=== PATIENT | female | born 1940 | race Caucasian/White ===

== ENCOUNTER 2020-03-01 00:38 | Outpatient (CLI) | payer MEDICARE, SELFPAY ==
[2020-03-01 17:26] LABS: SARS-CoV-2 RNA PCR Negative
== END 2020-03-01 00:39 | disposition home or self-care (01) ==
LOC: ANHCOVIDDT 00:39
PROVIDERS: PCP Family Medicine; Visit Provider Internal Medicine Gastroenterology
DX: Z01.812 Encounter for preprocedural laboratory examination (principal); Z20.828 Contact with and (suspected) exposure to other viral communicable diseases
CPT/HCPCS: 87635; C9803; U0003

== ENCOUNTER 2020-03-03 02:11 | Day surgery (SDC) | payer MEDICARE, SELFPAY ==
[2020-02-26 12:54] VITALS: BMI 33.0
--- NOTE | 2020-03-02 13:04 | WPDANESEPPF ---
Anes - Initial Pre Proc Eval Procedure: Operation Date: 03/03/20 10:00 Proposed Procedures p Screening Colonoscopy - Connor Brandon MD Date/Time: 03/02/20 13:04 Surgeon: Connor Brandon MD Pre Op Diagnosis: Hx Of Polyps Patient Data Age: 79 Gender: F Height: 1.57 m Weight: 82 kg Allergies Allergy/AdvReac Type Severity Reaction Status Date / Time No Known Allergies Allergy Verified 03/03/20 09:30 Home Medications Medication Instructions Recorded Confirmed Type amlodipine 5 mg-benazepril 10 mg 1 cap PO DAILY #90 cap 12/30/19 03/03/20 Rx capsule cholecalciferol (vitamin D3) 75 75 mcg PO DAILY 12/30/19 03/03/20 History mcg (3,000 unit) tablet fenofibrate micronized 134 mg 134 mg PO QPM #90 cap 12/30/19 03/03/20 Rx capsule chlorthalidone 25 mg PO PRN PRN 02/26/20 02/26/20 History Patient hx anesthesia problems: none Family hx anesthesia problems: none PMFSH Past Medical History Medical History Gallbladder & bile duct stone, acute cholecystitis and obstruction Hiatal hernia HTN (hypertension) Mixed hyperlipidemia Vitamin D deficiency Surgical History Surgical History History of tubal ligation Social History Social History Smoking status: Never smoker Second hand tobacco smoke exposure: No Alcohol intake: never Substance use: never Substance use type: does not use Living arrangements: with family Additional living arrangements comments: lives with and brother Gender identity (if verbalized by the patient): Female Spiritual care concerns: No Anes - Eval Final PreProcedure Day of Procedure 03/02/20 13:04 Patient weight: obese Heart: regular rate and rhythm Lungs: clear to auscultation and normal air movement Airway: Mallampati scale class II Neurological: alert and oriented Last oral intake: >/= 8 hours ASA classification: II Emergent: no Anesthetic plan: proceed Anesthesia type and monitoring: general GIVS and standard monitoring Informed Consent: The patient's anesthetic plan and its attendant risks and benefits were discussed with the patient/family/POA. Questions were solicited and answers provided to the satisfaction of the patient/family/POA.
[2020-03-03 09:32] VITALS: BP 122/64; PULSE 77; RESP 18; TEMP 36.5; O2SAT 97; BMI 33.4
--- NOTE | 2020-03-03 09:41 | PM.HPGS ---
History of Present Illness History of Present Illness Consent: Risks, benefits, and alternatives have been discussed and questions answered. Patient agrees to proceed with procedure. Chief complaint: Hx Of Polyps Narrative: Bianca Solis is a 79 year old W female undergoing screening colonoscopy secondary history of multiple small colonic polyps on colonoscopy 3 years ago. Patient is asymptomatic. No family history of colon cancer. No interval changes in her health except for adding cholesterol-lowering medication PMFSH Past Medical History Medical History Gallbladder & bile duct stone, acute cholecystitis and obstruction Hiatal hernia HTN (hypertension) Mixed hyperlipidemia Vitamin D deficiency Surgical History Surgical History History of tubal ligation Social History Social History Smoking status: Never smoker Second hand tobacco smoke exposure: No Alcohol intake: never Substance use: never Substance use type: does not use Living arrangements: with family Additional living arrangements comments: lives with and brother Gender identity (if verbalized by the patient): Female Spiritual care concerns: No Meds Home Medications and Allergies Home Medications Medication Instructions Recorded Confirmed Type amlodipine 5 mg-benazepril 10 mg 1 cap PO DAILY #90 cap 12/30/19 03/03/20 Rx capsule cholecalciferol (vitamin D3) 75 75 mcg PO DAILY 12/30/19 03/03/20 History mcg (3,000 unit) tablet fenofibrate micronized 134 mg 134 mg PO QPM #90 cap 12/30/19 03/03/20 Rx capsule chlorthalidone 25 mg PO PRN PRN 02/26/20 02/26/20 History Allergies Allergy/AdvReac Type Severity Reaction Status Date / Time No Known Allergies Allergy Verified 03/03/20 09:30 Vital Signs Vital Signs - 24 hr 03/03/20 09:32 Temperature 36.5 C Pulse Rate 77 Respiratory Rate 18 Blood Pressure 122/64 Pulse Oximetry 97 Exam Const: Orientation/consciousness: patient oriented x3 Resp: Auscultation: clear to auscultation bilaterally Cardio: Rate: regular rate Rhythm: regular rhythm Heart sounds: no murmurs GI: GI Palp: Yes Soft to palpation, No Tenderness to palpation present (GI), Yes No hepatosplenomegaly present and No Palpable mass present Auscultation: normal bowel sounds Neuro: General: patient oriented x3 and no focal motor deficits Extrem: General: no pedal edema Assessment and Plan Additional Plan screening colonoscopy secondary history of colonic polyps
[2020-03-03] MEDS: LACTATED RINGERS 1,000 ML 150 ML IV CONT (09:47)
[2020-03-03 10:58] VITALS: BP 110/59; PULSE 69; RESP 23; O2SAT 96
[2020-03-03 11:08] VITALS: BP 103/56; PULSE 69; RESP 20; O2SAT 97
[2020-03-03 11:18] VITALS: BP 110/56; PULSE 61; RESP 20; O2SAT 97
== END 2020-03-03 11:29 | disposition home or self-care (01) ==
PROVIDERS: PCP Family Medicine; Visit Provider Internal Medicine Gastroenterology
PROC: 0DJD8ZZ Inspection of Lower Intestinal Tract, Via Natural or Artificial Opening Endoscopic (ICD-10-PCS; CPT 45378; principal; 2020-03-03 10:00)
DX: Z12.11 Encounter for screening for malignant neoplasm of colon (principal); D12.2 Benign neoplasm of ascending colon; K57.30 Diverticulosis of large intestine without perforation or abscess without bleeding; K64.8 Other hemorrhoids; K64.4 Residual hemorrhoidal skin tags; I10 Essential (primary) hypertension; E78.2 Mixed hyperlipidemia; E55.9 Vitamin D deficiency, unspecified; E66.9 Obesity, unspecified; Z68.33 Body mass index [BMI] 33.0-33.9, adult
CPT/HCPCS: 45385; 45381; 88305; J2704; J7120

== ENCOUNTER 2020-07-14 06:54 | Outpatient (NON) | payer MEDICARE, SELFPAY ==
[2020-07-14 21:42] LABS: SARS-CoV-2 RNA PCR Negative
== END 2020-07-14 06:55 ==
LOC: ANHCOVIDDT 07:08
PROVIDERS: Physician Assistant; Family Provider Family Medicine; PCP Family Medicine; Visit Provider Family Medicine
DX: R68.89 Other general symptoms and signs (principal); Z20.822 Contact with and (suspected) exposure to COVID-19
CPT/HCPCS: C9803; U0003; U0005

== ENCOUNTER 2020-11-16 08:22 | Outpatient (CLI) | payer MEDICARE, SELFPAY ==
--- NOTE | ~2020-11-16 | XR_ITS ---
EXAMINATION: XR chest 2V DATE: 11/16/2020 08:39 INDICATION: Cough. TECHNIQUE: Frontal and lateral views of the chest were obtained. COMPARISON: CT abdomen and pelvis 09/16/2014, chest 2 views 10/18/2004 FINDINGS: The chest demonstrates clear lungs without pneumonia, pleural effusion, or pneumothorax. Th e heart size is normal. IMPRESSION: 1. No acute cardiopulmonary disease. Reviewed, dictated and finalized at location A.
== END 2020-11-16 08:23 | disposition home or self-care (01) ==
PROVIDERS: PCP Family Medicine; Visit Provider Family Medicine
DX: R05 Cough (principal)
CPT/HCPCS: 71046

== ENCOUNTER 2020-11-21 07:38 | Outpatient (CLI) | payer MEDICARE, SELFPAY ==
--- NOTE | 2020-11-21 08:33 | ECG_ITS ---
Measurements Intervals Raymond Rate: 65 P: -14 MT: 171 QRS: -31 QRSD: 92 T: 16 QT: 390 QTc: 407 Interpretive Statements SINUS RHYTHM LEFT AXIS DEVIATION POOR R WAVE PROGRESSION, ANTERIOR LEADS BASELINE ARTIFACT- I, II, III, AVR, AVL, AVF BORDERLINE ECG Electronically Signed On 11-21-2020 12:01:09 CDT by Drake Moody D.O.
[2020-11-21 09:01] LABS: Basophils Absolute Auto 0.1 K/mm3 (0.0-0.1); Basophils Percent Auto 0.3 % (0.2-1.2); Eosinophils Percent Auto 0.3 % (0-4.4); Hematocrit 43.3 % (37.0-47.0); Hemoglobin 13.9 g/dL (12.0-15.0); Immature Granulocyte Absolute 0.19 K/mm3 (0.00-0.031); Immature Granulocyte Percent A 1.2 % (0-0.5); Lymphocytes Absolute Auto 2.72 K/mm3 (0.9-3.2); Lymphocytes Percent Auto 17.8 % (18.3-44.2); Mean Corpuscular HGB Conc 32.1 g/dl (32-36); Mean Corpuscular Hemoglobin 28.1 pg (26-34); Mean Corpuscular Volume 87.7 fl (80-100); Mean Platelet Volume 11.2 fl (7.4-10.4); Monocytes Percent Auto 6.3 % (2.6-8.5); Neutrophils Absolute Auto 11.3 K/mm3 (1.3-6.7); Neutrophils Percent Auto 74.1 % (45.5-73.1); Platelet Count Result 307 k/mm3 (150-375); Red Blood Count 4.94 M/mm3 (4.2-5.4); Red Cell Distribution Width 13.7 % (11.5-14.5); White Blood Count 15.3 K/mm3 (4.5-10.0)
[2020-11-21 09:10] LABS: INR 0.9; Prothrombin Time 13.2 Seconds (11.1-14.7)
[2020-11-21 09:11] LABS: Partial Thromboplastin Time 27.2 SECONDS (22.3-36.8)
[2020-11-21 09:20] LABS: Albumin Level 4.5 g/dL (3.5-5.1); Anion Gap 11 mmol/L (8-16); Blood Urea Nitrogen 35 mg/dL (7-17); Calcium 10.9 mg/dL (8.4-10.2); Carbon Dioxide 26 mmol/L (22-30); Chloride 103 mmol/L (98-107); Estimated Glomerular Filt Rate 48; Glucose 92 mg/dL (65-105); Sodium 140 mmol/L (137-145)
[2020-11-21 09:44] LABS: Urine Cotinine NEGATIVE
[2020-11-21 10:56] LABS: Hemoglobin A1C 5.6 % (<5.7)
[2020-11-21 11:51] LABS: Add Urine Microscopic? YES; Appearance Urine Clear (Clear); Bacteria Urine Trace /hpf; Bilirubin Urine Negative (Negative); Blood Urine Negative (Negative); Color Urine Straw (Yellow); Glucose Urine UA Negative (Negative); Ketones Urine Negative (Negative); Leukocyte Esterase Ur 1+ LEU/UL (Negative); Mucus Urine Rare /lpf; Nitrate Urine Negative (Negative); Protein Urine Negative (Negative); RBC Urine 0-2 /hpf (0-2); Specific Grav Ur 1.012 (1.001-1.035); Squamous Epithelial Cell Urine Few /hpf (Few); Urobilinogen Urine Negative mg/dL (<2.0); WBC Urine 0-3 /hpf
== END 2020-11-21 07:39 | disposition home or self-care (01) ==
LOC: ANHSURGERY 07:39
PROVIDERS: PCP Family Medicine; Visit Provider Orthopaedic Surgery
DX: M17.10 Unilateral primary osteoarthritis, unspecified knee (principal); Z01.818 Encounter for other preprocedural examination; R94.31 Abnormal electrocardiogram [ECG] [EKG]
CPT/HCPCS: 80048; 80307; 81001; 82040; 83036; 85025; 85610; 85730; 87081; 93005

== ENCOUNTER → 2020-12-03 00:08 | Outpatient (CLI) | payer MEDICARE, SELFPAY ==
[2020-12-03 19:27] LABS: SARS-CoV-2 RNA PCR Negative
== END ==
PROVIDERS: PCP Family Medicine; Visit Provider Orthopaedic Surgery
DX: Z01.812 Encounter for preprocedural laboratory examination (principal); Z20.822 Contact with and (suspected) exposure to COVID-19
CPT/HCPCS: C9803; U0003; U0005

== ENCOUNTER 2020-12-07 15:47 | Observation (INO) | payer MEDICARE, SELFPAY ==
[2020-11-21 08:15] VITALS: BP 140/80; PULSE 72; RESP 18; TEMP 37.2; O2SAT 95; BMI 34.2
[2020-12-06] VITALS (15 sets, daily range): BP systolic 110–132; BP diastolic 48–86; PULSE 65–88; RESP 15–22; TEMP 36.2–36.9; O2SAT 94–99
--- NOTE | 2020-12-06 08:18 | WPDANESEPPF ---
Anes - Initial Pre Proc Eval Procedure: Operation Date: 12/06/20 12:00 Proposed Procedures p Right Total Knee Arthroplasty - Tyrone Padilla MD Date/Time: 12/06/20 08:18 Surgeon: Tyrone Padilla MD Pre Op Diagnosis: Right knee DJD Patient Data Age: 80 Gender: F Height: 1.51 m Weight: 78.1 kg Last Vital Signs Temp 37.2 C 11/21/20 08:15 Pulse 72 11/21/20 08:15 Resp 18 11/21/20 08:15 BP 140/80 11/21/20 08:15 Pulse Ox 95 11/21/20 08:15 Allergies Allergy/AdvReac Type Severity Reaction Status Date / Time No Known Allergies Allergy Verified 12/06/20 09:58 Home Medications Medication Instructions Recorded Confirmed Type cholecalciferol (vitamin D3) 75 75 mcg PO DAILY 12/30/19 12/06/20 History mcg (3,000 unit) tablet fenofibrate micronized 134 mg 134 mg PO QPM #90 cap 06/30/20 12/06/20 Rx capsule chlorhexidine gluconate 4 % 1 applic TOPICAL ONCE #237 ml 10/12/20 12/06/20 Rx topical liquid tramadol 50 mg tablet 50 mg PO Q8H PRN #30 tablet 11/08/20 12/06/20 Rx benzonatate 200 mg capsule 200 mg PO TID PRN #30 cap 11/16/20 12/06/20 Rx amlodipine-benazepril 1 cap PO HS 11/21/20 12/06/20 History ascorbic acid (vitamin C) [Vitamin 1 g PO DAILY 11/21/20 12/06/20 History C] chlorthalidone 25 mg PO QAM 11/21/20 12/06/20 History diphenhydramine HCl [Unisom 50 mg PO HS 11/21/20 12/06/20 History (diphenhydramine)] fluticasone propionate See Rx Instructions .ROUTE 11/21/20 12/06/20 History .COMPLEX PRN Patient hx anesthesia problems: none Family hx anesthesia problems: none PMFSH Past Medical History Medical History (Updated 12/06/20 @ 08:19 by Pedrito Rae MD) Degenerative joint disease of knee Gallbladder & bile duct stone, acute cholecystitis and obstruction Hiatal hernia HTN (hypertension) Knee effusion, right Mixed hyperlipidemia Obesity (BMI 30.0-34.9) Right knee pain Vitamin D deficiency Surgical History Surgical History History of tubal ligation Family History Family History Mother Carcinoma of colon Father Family history of lung cancer Family history of heart disease in male family member before age 55 Patient's father is , Onset Age: 67 Grandparent Carcinoma of colon Sibling Family history of malignant neoplasm of breast in first degree relative, Onset Age: 45 Patient's brother is , Onset Age: 73 Other Family history of liver disease Hypertension Social History Social History (Updated 11/23/20 @ 10:57 by Luz Bates CMA) Social History: Second hand tobacco smoke exposure: No Alcohol intake: never Substance use: never Substance use type: does not use Living arrangements: with family Additional living arrangements comments: lives with and brother Gender identity (if verbalized by the patient): Female Spiritual care concerns: No Anes - Eval Final PreProcedure Day of Procedure 12/06/20 08:18 Patient weight: obese Heart: regular rate and rhythm Lungs: clear to auscultation and normal air movement Airway: Mallampati scale class II Neurological: alert and oriented Last oral intake: >/= 8 hours ASA classification: III Emergent: no Anesthetic plan: proceed Anesthesia type and monitoring: general LMA Informed Consent: The patient's anesthetic plan and its attendant risks and benefits were discussed with the patient/family/POA. Questions were solicited and answers provided to the satisfaction of the patient/family/POA.
[2020-12-06] MEDS: ACETAMINOPHEN 500 MG TABLET 1000 MG PO ×2 (10:19→20:09)
[2020-12-06] MEDS: TRANEXAMIC ACID 1,000MG/ISO100 1,000 MG/100 ML BAG 200 MG IVPB (10:35)
[2020-12-06] MEDS: LACTATED RINGERS 1,000 ML 30 ML IV CONT ×2 (10:35→15:42)
--- NOTE | 2020-12-06 12:55 | WPDHPUPDATE1 ---
History and Physical Update Update Date/Time: 12/06/20 12:55 History and Physical has been reviewed, including an updated exam of the patient. There are NO changes in the patient's condition. Risks, benefits, and alternatives have been discussed and questions answered. Patient agrees to proceed with procedure.
--- NOTE | 2020-12-06 12:56 | WPDANESPNB ---
Anes - Peripheral Nerve Block Date/Time: 12/06/20 12:56 I have discussed with the patient/family/POA the placement of a peripheral nerve block for post-operative pain management, including associated risks, benefits, complications, and side effects. Alternative methods of post-operative analgesia were detailed. Questions were solicited and answers provided to the satisfaction of the patient/family/POA. Time-Out: A pre-procedural Time-Out was completed immediately before starting the procedure and confirmed: Patient Identification, Site, Procedure, Patient Position and the Availability of Requisite Equipment. Clinical Indications: Acute post-operative pain management requested by the operative surgeon. Nerve Block Insertion Note Anes-nerve block: adductor canal right Patient position: supine Skin prep: chlorhexidine Needle: 22 gauge, stimulating, insulated echogenic needle. Needle length: 80 mm Technique: ultrasound Technique comment: in plane Injectate: bupivacaine 0.5% with epi 5 mcg/ml (30cc) Observations: tolerated well Complications: none Procedure start time:: 1245 Procedure end time:: 1250
[2020-12-06] MEDS: ceFAZolin 2 GM/D5W 50 ML 2 GM/50 ML BAG IVPB ×2 (12:58→20:46)
[2020-12-06] MEDS: GENTAMICIN BONE CEMENT REFOBACIN 1 EACH TOPICAL (13:49)
--- NOTE | 2020-12-06 15:42 | W.PM.PROC2 ---
Procedure Note - Detailed Date of Procedure 12/06/20 Pre-op Diagnosis Right knee DJD Post-op Diagnosis same Procedure Performed R TKA Surgeon Tyrone Padilla MD Anesthesia general Description of Procedure THE RIGHT KNEE WAS PREPPED AND DRAPED IN THE STERILE FASHION. A MIDLINE SKIN INCISION WAS MADE. A MEDIAL PARAPATELLAR ARTHROTOMY WAS MADE. THE PATELLA WAS EVERTED. THERE WAS TRICOMPARTMENT DJD. THERE WAS MINIMAL PATELLA DJD. AN INTRAMEDULLARY BRIAN WAS PLACED IN THE FEMUR. A DISTAL FEMORAL CUT WAS MADE IN 5 DEGREES OF VALGUS REMOVING APPROXIMATELY 9 MM OF BONE FROM THE DISTAL FEMUR. THE FEMUR WAS SIZED TO 60. A 60 FEMORAL CUTTING BLOCK WAS PLACED IN 3 DEGREES OF EXTERNAL ROTATION AND IN ALIGNMENT WITH NORMA'S LINE AND THE TRANSEPICONDYLAR AXIS. ANTERIOR POSTERIOR AND CHAMFER CUTS WERE MADE. THE CUTS WERE EXCELLENT. NEXT AN INTRAMEDULLARY CUTTING GUIDE WAS PLACED IN THE TIBIA. A TRANS TIBIAL CUT WAS MADE ALONG THE LONG AXIS OF THE TIBIA. APPROXIMATELY 10 MM OF BONE WAS REMOVED FROM THE HIGH SIDE OF THE TIBIA. THE TIBIA WAS THEN PLANED TO A SMOOTH SURFACE. POSTERIOR FEMORAL OSTEOPHYTES WERE REMOVED FROM THE FEMORAL CONDYLES. A 67 TIBIAL TRIAL WAS PLACED IN ALIGNMENT WITH THE 1/3 MEDIAL ASPECT OF THE TIBIAL TUBERCLE. THEN A 60 FEMORAL TRIAL COMPONENT WAS PLACED. BOTH HAD EXCELLENT FITS. EVENTUALLY A 12 MM CR POLYETHYLENE TRIAL COMPONENT WAS PLACED. THE KNEE WAS TAKEN THROUGH A RANGE OF MOTION. THE KNEE CAME OUT TO FULL EXTENSION. THERE WAS NO ABNORMAL TILT TO THE PATELLA. THERE WAS GOOD A/P AND VARUS/VALGUS STABILITY. THERE WAS NO EXCESSIVE ROLL BACK WITH FLEXION. THE TRIAL COMPONENTS WERE REMOVED. THEN A 60 FEMORAL COMPONENT AND 67 TIBIAL COMPONENT WITH A 12 CR POLYETHYLENE COMPONENT WERE CEMENTED INTO PLACE. ONCE THE CEMENT WAS HARD THE KNEE WAS TAKEN THROUGH A ROM AGAIN AND FOUND TO BE STABLE WITH NO PATELLA TILT NO EXCESSIVE ROLL BACK WITH FLEXION AND GOOD STABILITY WITH COMPLETE AND FULL EXTENSION. THE KNEE WAS IRRIGATED WITH STERILE BETADINE AND WATER FOR ABOUT 3 MINUTES. THE BLEEDERS WERE CAUTERIZED. THE ARTHROTOMY WAS REPAIRED WITH NUMBER 1 VICRYL. THE SUB CUTANEOUS LAYER WITH 2-0 VICRYL AND THE SKIN WITH SOWMYA. THE WOUND WAS WASHED AND A STERILE DRESSING WAS APPLIED. PATIENT WAS EXTUBATED. Estimated Blood Loss -150.0 Pathology none sent Complications No immediate complications Condition stable Disposition PACU
[2020-12-06] MEDS: fentaNYL CITRATE INJ (*CRX) 100 MCG/2 ML VIAL 25 MCG IV PUSH ×4 (16:36→17:26)
--- NOTE | 2020-12-06 17:45 | ADMGEN ---
This patient, Bianca Solis, was admitted to Medical Room 257-01. Patient/family oriented to hospital policies and general routines including ID bracelet, bed and alarms, visiting hours, pain management, procedures, bathroom and other care routines, personal items, smoking policy, room service/diet, and visiting hours. Information on how to activate the Rapid Response Team has been discussed. Patient/Family are encouraged to report perceived risks to care and to ask questions if they do not understand what they are told or what they should do.
[2020-12-06] MEDS: DOCUSATE SODIUM 100 MG CAPSULE PO (18:23)
[2020-12-06] MEDS: oxyCODONE HCL (*CRX) 2.5 MG TAB IR 7.5 MG PO (19:00)
[2020-12-06] MEDS: amLODIPine BESYLATE 5 MG TABLET PO (20:46)
[2020-12-06] MEDS: FAMOTIDINE 20 MG TABLET PO (20:46)
[2020-12-06] MEDS: lisinopriL 10 MG TABLET PO (20:46)
[2020-12-06] MEDS: diphenhydrAMINE HCl CAP 25 MG CAPSULE 50 MG PO (20:48)
[2020-12-06] MEDS: oxyCODONE/ACETAMINOPHEN (*CRX) 5-325 MG TABLET 1 TABLET PO (23:03)
[2020-12-07] VITALS (7 sets, daily range): BP systolic 110–124; BP diastolic 50–74; PULSE 63–80; RESP 14–18; TEMP 36.4–37.1; O2SAT 92–97
--- NOTE | ~2020-12-07 | XR_ITS ---
EXAMINATION: XR knee RT 2V DATE: 12/06/2020 16:00 CDT INDICATION: Right total knee arthroplasty TECHNIQUE: 2 views right knee FINDINGS: There is a right total knee arthroplasty in expected position. Subcutaneous gas with fluid and air in the joint and overlying skin nadira are consistent with recent surgery. No evidence of p eriprosthetic fracture. IMPRESSION: 1. Recent right total knee arthroplasty. Reviewed, dictated and finalized at location B.
[2020-12-07] MEDS: oxyCODONE/ACETAMINOPHEN (*CRX) 5-325 MG TABLET 1 TABLET PO ×5 (03:30→21:07)
[2020-12-07] MEDS: ceFAZolin 2 GM/D5W 50 ML 2 GM/50 ML BAG IVPB ×2 (04:53→12:56)
[2020-12-07 05:40] LABS: Basophils Percent Auto 0.2 % (0.2-1.2); Eosinophils Percent Auto 0.2 % (0-4.4); Hematocrit 31.2 % (37.0-47.0); Hemoglobin 10.3 g/dL (12.0-15.0); Immature Granulocyte Absolute 0.02 K/mm3 (0.00-0.031); Immature Granulocyte Percent A 0.2 % (0-0.5); Lymphocytes Absolute Auto 1.24 K/mm3 (0.9-3.2); Mean Corpuscular Hemoglobin 28.1 pg (26-34); Mean Platelet Volume 10.9 fl (7.4-10.4); Monocytes Absolute Auto 0.8 K/mm3 (0.1-0.6); Monocytes Percent Auto 8.2 % (2.6-8.5); Neutrophils Absolute Auto 7.5 K/mm3 (1.3-6.7); Neutrophils Percent Auto 78.2 % (45.5-73.1); Platelet Count Result 222 k/mm3 (150-375); Red Blood Count 3.67 M/mm3 (4.2-5.4); Red Cell Distribution Width 13.4 % (11.5-14.5); White Blood Count 9.5 K/mm3 (4.5-10.0)
[2020-12-07 05:48] LABS: Anion Gap 7 mmol/L (8-16); Blood Urea Nitrogen 19 mg/dL (7-17); Calcium 9.7 mg/dL (8.4-10.2); Carbon Dioxide 27 mmol/L (22-30); Chloride 105 mmol/L (98-107); Estimated Glomerular Filt Rate 48; Glucose 117 mg/dL (65-105); Potassium 3.5 mmol/L (3.4-5.0); Sodium 139 mmol/L (137-145)
[2020-12-07] MEDS: ASCORBIC ACID 500 MG TABLET 1000 MG PO (08:21)
[2020-12-07] MEDS: ASPIRIN 325 MG ENTERIC TABLET 650 MG PO (08:21)
[2020-12-07] MEDS: FAMOTIDINE 20 MG TABLET PO ×2 (08:21→20:54)
[2020-12-07] MEDS: DOCUSATE SODIUM 100 MG CAPSULE PO ×2 (08:21→17:14)
[2020-12-07] MEDS: CHLORTHALIDONE 25 MG TABLET PO (08:21)
--- NOTE | 2020-12-07 10:17 | WPDANESPN ---
Anes - Prog Note Post-Op Date/Time: 12/07/20 10:17 Cardiovascular status: normal Respiratory status: normal Airway patency: baseline Mental status: baseline Post-Op hydration status: normal Vital Signs: Last Vital Signs Temp 36.8 C 12/07/20 07:55 Pulse 70 12/07/20 07:55 Resp 18 12/07/20 07:55 BP 124/50 L 12/07/20 07:55 Pulse Ox 97 12/07/20 07:55 Pain Score (VAS): 0/10. Patient resting in bed at time of assessment, appears comfortable. I/O: Intake & Output 12/06/20 12/07/20 12/07/20 23:59 07:59 15:59 Intake Total 250 300 Output Total 550 650 Balance -300 -350 Laboratory Tests 12/07/20 05:22 12/07/20 05:22 12/06/20 12/07/20 12/07/20 10:43 05:22 05:22 WBC 9.5 RBC 3.67 L Hgb 10.3 L D Hct 31.2 L MCV 85.0 MCH 28.1 MCHC 33.0 RDW 13.4 Plt Count 222 MPV 10.9 H Immature Gran % (Auto) 0.2 Neut % (Auto) 78.2 H Lymph % (Auto) 13.0 L [place] % (Auto) 8.2 Eos % (Auto) 0.2 Baso % (Auto) 0.2 Lymph # (Auto) 1.24 [place] # (Auto) 0.8 H Eos # (Auto) 0.0 Baso # (Auto) 0.0 Abs Immat Gran (auto) 0.02 Absolute Neuts (auto) 7.5 H Absolute Nucleated RBC 0.0 Nucleated RBC % 0.0 Sodium 139 Potassium 3.5 Chloride 105 Carbon Dioxide 27 Anion Gap 7 L BUN 19 H D Creatinine 1.10 H Estim Creat Clear Calc Not Reportable Estimated GFR 48 L Glucose 117 H Calcium 9.7 Blood Type A Positive Antibody Screen Negative Post-procedural complaints: none Patient Feedback: Patient satisfied with anesthetic care.
[2020-12-07] MEDS: ACETAMINOPHEN 500 MG TABLET 1000 MG PO (11:44)
--- NOTE | 2020-12-07 14:13 | PM.PNORT ---
Progress Note: A&P Additional Plan POD 1 DOING WELL. ANTICIPATE DC TMRW DUE TO SLOW PROGRESS WITH PT. Subjective Subjective Date/Time Seen: 12/07/20 14:13 POD 1 DOING WELL. SLOW PROGRESS WITH PT. 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 NEG [employer] SIGN Objective Data Vital Signs Vital Signs: Vital Signs - 24 hr 12/06/20 15:42 12/06/20 15:57 12/06/20 16:12 Temperature 36.4 C Pulse Rate 88 84 83 Respiratory Rate 22 H 21 H 19 Blood Pressure 132/65 128/61 110/86 Pulse Oximetry 97 96 96 12/06/20 16:27 12/06/20 16:42 12/06/20 16:57 Temperature Pulse Rate 82 77 84 Respiratory Rate 20 16 18 Blood Pressure 115/78 126/62 128/58 L Pulse Oximetry 98 95 96 12/06/20 17:12 12/06/20 17:27 12/06/20 17:45 Temperature 36.9 C Pulse Rate 82 83 75 Respiratory Rate 15 18 18 Blood Pressure 118/69 115/48 L 125/62 Pulse Oximetry 96 96 94 12/06/20 18:00 12/06/20 18:30 12/06/20 19:18 Temperature 36.8 C 36.9 C 36.2 C L Pulse Rate 77 74 74 Respiratory Rate 18 18 18 Blood Pressure 124/60 128/59 L 118/61 Pulse Oximetry 94 95 94 12/06/20 21:48 12/06/20 23:12 12/07/20 03:18 Temperature 36.7 C 36.8 C Pulse Rate 65 74 Respiratory Rate 18 18 Blood Pressure 126/55 L 119/58 L Pulse Oximetry 99 95 95 12/07/20 07:55 Temperature 36.8 C Pulse Rate 70 Respiratory Rate 18 Blood Pressure 124/50 L Pulse Oximetry 97 Intake/Output Intake/Output: Intake & Output 12/04/20 12/05/20 12/06/20 12/07/20 23:59 23:59 23:59 23:59 Intake Total 400 300 Output Total 550 650 Balance -150 -350 Meds/Results Medications: Active Medications Generic Name Dose Route Start Last Admin Trade Name Freq PRN Reason Stop Dose Admin Acetaminophen 1,000 mg 12/06/20 17:33 12/07/20 11:44 Acetaminophen 500 Mg Tablet PO 1,000 mg Q6H PRN Administration Pain Rated 1-3 Amlodipine Besylate 5 mg 12/06/20 21:00 12/06/20 20:46 Amlodipine Besylate 5 Mg Tablet PO 5 mg HS CASANDRA Administration Ascorbic Acid 1,000 mg 12/07/20 09:00 12/07/20 08:21 Ascorbic Acid 500 Mg Tablet PO 1,000 mg DAILY CASANDRA Administration Aspirin 650 mg 12/07/20 09:00 12/07/20 08:21 Aspirin 325 Mg Enteric Tablet PO 650 mg DAILY CASANDRA Administration Benzonatate 200 mg 12/06/20 18:08 Benzonatate 100 Mg Capsule PO TID PRN cough Chlorthalidone 25 mg 12/07/20 09:00 12/07/20 08:21 Chlorthalidone 25 Mg Tablet PO 25 mg QAM CASANDRA Administration Diazepam 5 mg 12/06/20 17:33 Diazepam (*Crx) 5 Mg Tablet PO Q8H PRN Spasms Diphenhydramine HCl 50 mg 12/06/20 21:00 12/06/20 20:48 Diphenhydramine Hcl Cap 25 Mg Capsule PO 50 mg HS CASANDRA Administration Docusate Sodium 100 mg 12/06/20 17:33 12/07/20 08:21 Docusate Sodium 100 Mg Capsule PO 100 mg BID CASANDRA Administration Famotidine 20 mg 12/06/20 21:00 12/07/20 08:21 Famotidine 20 Mg Tablet PO 20 mg Q12HR CASANDRA Administration Lisinopril 10 mg 12/06/20 21:00 12/06/20 20:46 Lisinopril 10 Mg Tablet PO 10 mg HS CASANDRA Administration Naloxone HCl 0.1 mg 12/06/20 17:33 Naloxone Hcl 0.4 Mg/Ml Vial IV PUSH Q2M PRN Opiate Reversal Ondansetron HCl 4 mg 12/06/20 17:33 Ondansetron Inj 4 Mg/2 Ml Vial IV PUSH Q4H PRN Nausea And Vomiting Oxycodone HCl 7.5 mg 12/06/20 17:33 12/06/20 19:00 Oxycodone Hcl (*Crx) 2.5 Mg Tab Ir PO 7.5 mg Q4H PRN Administration Pain Rated 7-10 Oxycodone/Acetaminophen 1 tablet 12/06/20 17:33 12/07/20 13:01 Oxycodone/Acetaminophen (*Crx) 5-325 Mg Tablet PO 1 tablet Q4H PRN Administration Pain Rated 4-6 Radiology Results: ITS Impressions Knee X-Ray 12/06/20 16:00 IMPRESSION: 1. Recent right total knee arthroplasty. Labs Labs: Laboratory Results - last 24 hr 12/07/20 12/07/20 05:22 05:22 WBC 9.5 RBC 3.67 L Hgb 10.3 L D Hct 31.2 L MCV 85.0 MCH 2
--- NOTE | 2020-12-07 16:56 | PM.IMCN ---
Assessment and Plan Assessment and plan (1) Degenerative joint disease of knee: Qualifiers: Osteoarthritis type: primary Laterality: right Qualified Code(s): M17.11 - Unilateral primary osteoarthritis, right knee Code(s): M17.10 - Unilateral primary osteoarthritis, unspecified knee Status: Acute Assessment and Plan: Bianca Solis is a 80 year old female with history of hypertension and severe right knee osteoarthritis was seen by orthopedic surgeon and conservative management failed, on 12/06 patient was take to OR and had right knee total arthroplasty, today patient is the pain in the knees persist however was able to participate in physical therapy, denies any complaint of chest pain shortness of breath palpitation fever or chills (2) HTN (hypertension): Code(s): I10 - Essential (primary) hypertension Status: Acute Assessment and Plan: Patient is on oral home regimen patient blood pressure reasonably well controlled (3) Mixed hyperlipidemia: Code(s): E78.2 - Mixed hyperlipidemia Status: Acute Assessment and Plan: Currently patient is on not on any medications HPI Data of Consult Consult date: 12/07/20 Requesting Physician: Tyrone Padilla MD Primary Care Provider: Amira Valdez MD Consult Narrative Narrative: Bianca Solis is a 80 year old female with history of hypertension and severe right knee osteoarthritis was seen by orthopedic surgeon and conservative management failed, on 12/06 patient was take to OR and had right knee total arthroplasty, today patient is the pain in the knees persist however was able to participate in physical therapy, denies any complaint of chest pain shortness of breath palpitation fever or chills. With thank you for consulting us for medical management will follow the patient with you, if you have any question please feel free to call. Review of Systems Review of Systems: All systems reviewed & are unremarkable except as noted in HPI and below PMFSH Past Medical History Medical History (Updated 12/06/20 @ 08:19 by Pedrito Rae MD) Degenerative joint disease of knee Gallbladder & bile duct stone, acute cholecystitis and obstruction Hiatal hernia HTN (hypertension) Knee effusion, right Mixed hyperlipidemia Obesity (BMI 30.0-34.9) Right knee pain Vitamin D deficiency Surgical History Surgical History History of tubal ligation Family History Family History Mother Carcinoma of colon Father Family history of lung cancer Family history of heart disease in male family member before age 55 Patient's father is , Onset Age: 67 Grandparent Carcinoma of colon Sibling Family history of malignant neoplasm of breast in first degree relative, Onset Age: 45 Patient's brother is , Onset Age: 73 Other Family history of liver disease Hypertension Social History Social History (Updated 11/23/20 @ 10:[address] [facility]) Social History: Smoking status: Never smoker Second hand tobacco smoke exposure: No Alcohol intake: never Substance use: never Substance use type: does not use Living arrangements: with family Additional living arrangements comments: lives with and brother Gender identity (if verbalized by the patient): Female Spiritual care concerns: No Meds Home Medications and Allergies Home Medications Medication Instructions Recorded Confirmed Type cholecalciferol (vitamin D3) 75 75 mcg PO DAILY 12/30/19 12/06/20 History mcg (3,000 unit) tablet fenofibrate micronized 134 mg 134 mg PO QPM #90 cap 06/30/20 12/06/20 Rx capsule chlorhexidine gluconate 4 % 1 applic TOPICAL ONCE #237 ml 10/12/20 12/06/20 Rx topical liquid tramadol 50 mg tablet 50 mg PO Q8H
[2020-12-07] MEDS: diphenhydrAMINE HCl CAP 25 MG CAPSULE 50 MG PO (20:54)
[2020-12-07] MEDS: amLODIPine BESYLATE 5 MG TABLET PO (20:54)
[2020-12-07] MEDS: lisinopriL 10 MG TABLET PO (20:54)
[2020-12-08] VITALS (9 sets, daily range): BP systolic 70–110; BP diastolic 41–62; PULSE 84–95; RESP 16–18; TEMP 36.4–37.2; O2SAT 92–97
[2020-12-08] MEDS: oxyCODONE/ACETAMINOPHEN (*CRX) 5-325 MG TABLET 1 TABLET PO ×3 (01:13→10:24)
[2020-12-08] MEDS: ASCORBIC ACID 500 MG TABLET 1000 MG PO (07:41)
[2020-12-08] MEDS: ACETAMINOPHEN 500 MG TABLET 1000 MG PO ×3 (07:41→21:40)
[2020-12-08] MEDS: CHLORTHALIDONE 25 MG TABLET PO (07:42)
[2020-12-08] MEDS: DOCUSATE SODIUM 100 MG CAPSULE PO ×2 (07:42→16:17)
[2020-12-08] MEDS: ASPIRIN 325 MG ENTERIC TABLET 650 MG PO (07:42)
[2020-12-08] MEDS: FAMOTIDINE 20 MG TABLET PO ×2 (07:42→20:29)
--- NOTE | 2020-12-08 09:02 | PCOTNOTE ---
Attempted to see patient this am, however patient declined stating, I'm gonna shower when I get home. I'm supposed to go home today. Explained benefits of OT and ensuring safety and independence in ADLs prior to discharge home. Patient reported having no concerns as pertains to OT stating her husbands health has helped her prepare for home. Once again offered ADL training to ensure preparation for discharge, however patient declined.
--- NOTE | 2020-12-08 13:30 | PM.IMPN ---
Progress Note: A&P Assessment and Plan (1) Degenerative joint disease of knee: Qualifiers: Laterality: right Osteoarthritis type: primary Qualified Code(s): M17.11 - Unilateral primary osteoarthritis, right knee Code(s): M17.10 - Unilateral primary osteoarthritis, unspecified knee Status: Acute Assessment and Plan: 12/08/20 13:30 12/07 Bianca Solis is a 80 year old female with history of hypertension and severe right knee osteoarthritis was seen by orthopedic surgeon and conservative management failed, on 12/06 patient was take to OR and had right knee total arthroplasty, today patient is the pain in the knees persist however was able to participate in physical therapy, denies any complaint of chest pain shortness of breath palpitation fever or chills. 12/08 patient remains clinically stable was able to work with physical therapy and ready to go home, patient be seen by her orthopedic surgeon and most likely still be discharged today (2) HTN (hypertension): Code(s): I10 - Essential (primary) hypertension Status: Acute Assessment and Plan: Patient is on oral home regimen patient blood pressure reasonably well controlled (3) Mixed hyperlipidemia: Code(s): E78.2 - Mixed hyperlipidemia Status: Acute Assessment and Plan: Currently patient is on not on any medications Subjective Date/time seen: 12/08/20 13:30 12/07 Bianca Solis is a 80 year old female with history of hypertension and severe right knee osteoarthritis was seen by orthopedic surgeon and conservative management failed, on 12/06 patient was take to OR and had right knee total arthroplasty, today patient is the pain in the knees persist however was able to participate in physical therapy, denies any complaint of chest pain shortness of breath palpitation fever or chills. 12/08 patient remains clinically stable was able to work with physical therapy and ready to go home, patient be seen by her orthopedic surgeon and most likely still be discharged today Review of Systems Review of Systems: All systems reviewed & are unremarkable except as noted in HPI and below Exam Narrative: Exam Narrative: Moderately Patient is comfortable, NAD HEENT: eyes are clear and none icteric LUNGS:CTA HEART: RR S1S2 ABD: BS+, Soft and nontender Lower extremities: no edema MS: Right knee surgical dressing SKIN: nonjaundiced Neuro: grossly intact. Objective Data Vital Signs Vital Signs: Vital Signs - 24 hr 12/07/20 14:18 12/07/20 18:00 12/07/20 20:00 Temperature 98.7 F 98.4 F Pulse Rate 70 76 76 Respiratory Rate 17 17 17 Blood Pressure 118/62 110/74 Pulse Oximetry 92 92 92 12/07/20 22:00 12/08/20 01:27 12/08/20 06:00 Temperature 97.6 F 97.8 F 97.8 F Pulse Rate 80 85 95 Respiratory Rate 14 18 18 Blood Pressure 111/50 L 97/49 L 105/49 L Pulse Oximetry 92 93 97 12/08/20 10:00 Temperature 98.9 F Pulse Rate 84 Respiratory Rate 18 Blood Pressure 94/48 L Pulse Oximetry 92 Intake/Output Intake/Output: Intake & Output 12/05/20 12/06/20 12/07/20 12/08/20 23:59 23:59 23:59 23:59 Intake Total 400 800 420 Output Total 550 1050 600 Balance -150 -250 -180 Meds/Results Medications: Active Medications Generic Name Dose Route Start Last Admin Trade Name Anita PRN Reason Stop Dose Admin Acetaminophen 1,000 mg 12/06/20 17:33 12/08/20 07:41 Acetaminophen 500 Mg Tablet PO 1,000 mg Q6H PRN Administration Pain Rated 1-3 Amlodipine Besylate 5 mg 12/06/20 21:00 12/07/20 20:54 Amlodipine Besylate 5 Mg Tablet PO 5 mg HS CASANDRA Administration Ascorbic Acid 1,000 mg 12/07/20 09:00 12/08/20 07:41 Ascorbic Acid 500 Mg Tablet PO 1,000 mg DAILY CASANDRA Administration Aspirin 650 mg 12/07/20 09:00 12/08/20 07:42 Aspirin 325 Mg Enteric Tablet PO 650 mg DAILY CASANDRA Administration Benzonatate 200 mg 12/06/20 18:08 Benzonatate 100 Mg Capsule PO
[2020-12-08] MEDS: SODIUM CHLORIDE 0.9% IV 250 ML 100 ML IV CONT (13:40)
--- NOTE | 2020-12-08 17:11 | PM.PNORT ---
Progress Note: A&P Additional Plan POD 2 WITH SOME BP LABILITY. WE WILL MAINTAIN HER INPATIENT FOR NOW UNTIL STABLE PER MEDICINE SERVICES. Subjective Subjective Date/Time Seen: 12/08/20 17:11 POD 2 DOING WELL BUT SHE HAS SOME LOW BP. NO LOC OR SOB. 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 [employer] SIGN Objective Data Vital Signs Vital Signs: Vital Signs - 24 hr 12/07/20 18:00 12/07/20 20:00 12/07/20 22:00 Temperature 36.9 C 36.4 C Pulse Rate 76 76 80 Respiratory Rate 17 17 14 Blood Pressure 110/74 111/50 L Pulse Oximetry 92 92 92 12/08/20 01:27 12/08/20 06:00 12/08/20 10:00 Temperature 36.6 C 36.6 C 37.2 C Pulse Rate 85 95 84 Respiratory Rate 18 18 18 Blood Pressure 97/49 L 105/49 L 94/48 L Pulse Oximetry 93 97 92 12/08/20 13:36 12/08/20 13:37 12/08/20 14:00 Temperature 36.4 C L Pulse Rate 92 Respiratory Rate 18 Blood Pressure 70/41 L 82/42 L 82/42 L Pulse Oximetry 96 12/08/20 15:40 Temperature Pulse Rate Respiratory Rate Blood Pressure 90/48 L Pulse Oximetry Intake/Output Intake/Output: Intake & Output 12/05/20 12/06/20 12/07/20 12/08/20 23:59 23:59 23:59 23:59 Intake Total 400 800 790 Output Total 550 1050 600 Balance -150 -250 190 Meds/Results Medications: Active Medications Generic Name Dose Route Start Last Admin Trade Name Freq PRN Reason Stop Dose Admin Acetaminophen 1,000 mg 12/06/20 17:33 12/08/20 15:41 Acetaminophen 500 Mg Tablet PO 1,000 mg Q6H PRN Administration Pain Rated 1-3 Amlodipine Besylate 5 mg 12/06/20 21:00 12/07/20 20:54 Amlodipine Besylate 5 Mg Tablet PO 5 mg HS CASANDRA Administration Ascorbic Acid 1,000 mg 12/07/20 09:00 12/08/20 07:41 Ascorbic Acid 500 Mg Tablet PO 1,000 mg DAILY CASANDRA Administration Aspirin 650 mg 12/07/20 09:00 12/08/20 07:42 Aspirin 325 Mg Enteric Tablet PO 650 mg DAILY CASANDRA Administration Benzonatate 200 mg 12/06/20 18:08 Benzonatate 100 Mg Capsule PO TID PRN cough Chlorthalidone 25 mg 12/07/20 09:00 12/08/20 07:42 Chlorthalidone 25 Mg Tablet PO 25 mg QAM CASANDRA Administration Diazepam 5 mg 12/06/20 17:33 Diazepam (*Crx) 5 Mg Tablet PO Q8H PRN Spasms Diphenhydramine HCl 50 mg 12/06/20 21:00 12/07/20 20:54 Diphenhydramine Hcl Cap 25 Mg Capsule PO 50 mg HS CASANDRA Administration Docusate Sodium 100 mg 12/06/20 17:33 12/08/20 16:17 Docusate Sodium 100 Mg Capsule PO 100 mg BID CASANDRA Administration Famotidine 20 mg 12/06/20 21:00 12/08/20 07:42 Famotidine 20 Mg Tablet PO 20 mg Q12HR CASANDRA Administration Lisinopril 10 mg 12/06/20 21:00 12/07/20 20:54 Lisinopril 10 Mg Tablet PO 10 mg HS CASANDRA Administration Naloxone HCl 0.1 mg 12/06/20 17:33 Naloxone Hcl 0.4 Mg/Ml Vial IV PUSH Q2M PRN Opiate Reversal Ondansetron HCl 4 mg 12/06/20 17:33 Ondansetron Inj 4 Mg/2 Ml Vial IV PUSH Q4H PRN Nausea And Vomiting Oxycodone HCl 7.5 mg 12/06/20 17:33 12/06/20 19:00 Oxycodone Hcl (*Crx) 2.5 Mg Tab Ir PO 7.5 mg Q4H PRN Administration Pain Rated 7-10 Oxycodone/Acetaminophen 1 tablet 12/06/20 17:33 12/08/20 10:24 Oxycodone/Acetaminophen (*Crx) 5-325 Mg Tablet PO 1 tablet Q4H PRN Administration Pain Rated 4-6 Radiology Results: ITS Impressions Knee X-Ray 12/06/20 16:00 IMPRESSION: 1. Recent right total knee arthroplasty.
[2020-12-08] MEDS: SODIUM CHLORIDE 0.9% IV 1,000 ML 75 ML IV CONT (17:28)
[2020-12-08] MEDS: amLODIPine BESYLATE 5 MG TABLET PO (20:28)
[2020-12-08] MEDS: lisinopriL 10 MG TABLET PO (20:29)
[2020-12-08] MEDS: diphenhydrAMINE HCl CAP 25 MG CAPSULE 50 MG PO (21:40)
[2020-12-09 01:00] VITALS: BP 115/58; PULSE 84; RESP 16; TEMP 36.4; O2SAT 96
[2020-12-09] MEDS: oxyCODONE/ACETAMINOPHEN (*CRX) 5-325 MG TABLET 1 TABLET PO ×2 (04:57→13:26)
[2020-12-09] MEDS: SODIUM CHLORIDE 0.9% IV 1,000 ML 75 ML IV CONT (06:25)
[2020-12-09 06:26] VITALS: BP 106/51; PULSE 88; RESP 18; TEMP 36.5; O2SAT 95
[2020-12-09] MEDS: ACETAMINOPHEN 500 MG TABLET 1000 MG PO (06:27)
[2020-12-09] MEDS: ASPIRIN 325 MG ENTERIC TABLET 650 MG PO (08:53)
[2020-12-09] MEDS: ASCORBIC ACID 500 MG TABLET 1000 MG PO (08:53)
[2020-12-09] MEDS: FAMOTIDINE 20 MG TABLET PO (08:54)
[2020-12-09] MEDS: DOCUSATE SODIUM 100 MG CAPSULE PO (09:01)
--- NOTE | 2020-12-09 12:03 | PM.IMPN ---
Progress Note: A&P Assessment and Plan (1) Degenerative joint disease of knee: Qualifiers: Osteoarthritis type: primary Laterality: right Qualified Code(s): M17.11 - Unilateral primary osteoarthritis, right knee Code(s): M17.10 - Unilateral primary osteoarthritis, unspecified knee Status: Acute Assessment and Plan: 12/09/20 12:03 12/07 Bianca Solis is a 80 year old female with history of hypertension and severe right knee osteoarthritis was seen by orthopedic surgeon and conservative management failed, on 12/06 patient was take to OR and had right knee total arthroplasty, today patient is the pain in the knees persist however was able to participate in physical therapy, denies any complaint of chest pain shortness of breath palpitation fever or chills. 12/08 patient remains clinically stable was able to work with physical therapy and ready to go home, patient be seen by her orthopedic surgeon and most likely still be discharged today. 12/09 , plan was to discharge patient on 12/08 however patient blood pressure was soft and patient felt dizzy, the patient was most likely dehydrated patient was gently hydrated with normal saline 75cc/hr, today patient feels much better and has no c/o being dizzy and was able to participate with PT. patient is clinically stable if okay with her orthopedic (2) HTN (hypertension): Code(s): I10 - Essential (primary) hypertension Status: Acute Assessment and Plan: Patient is on oral home regimen patient blood pressure reasonably well controlled (3) Mixed hyperlipidemia: Code(s): E78.2 - Mixed hyperlipidemia Status: Acute Assessment and Plan: Currently patient is on not on any medications Subjective Date/time seen: 12/09/20 12:03 12/07 Bianca Solis is a 80 year old female with history of hypertension and severe right knee osteoarthritis was seen by orthopedic surgeon and conservative management failed, on 12/06 patient was take to OR and had right knee total arthroplasty, today patient is the pain in the knees persist however was able to participate in physical therapy, denies any complaint of chest pain shortness of breath palpitation fever or chills. 12/08 patient remains clinically stable was able to work with physical therapy and ready to go home, patient be seen by her orthopedic surgeon and most likely still be discharged today. 12/09 , plan was to discharge patient on 12/08 however patient blood pressure was soft and patient felt dizzy, the patient was most likely dehydrated patient was gently hydrated with normal saline 75cc/hr, today patient feels much better and has no c/o being dizzy and was able to participate with PT. patient is clinically stable if okay with her orthopedic Review of Systems Review of Systems: All systems reviewed & are unremarkable except as noted in HPI and below Exam Narrative: Exam Narrative: Moderately Patient is comfortable, NAD HEENT: eyes are clear and none icteric LUNGS:CTA HEART: RR S1S2 ABD: BS+, Soft and nontender Lower extremities: no edema MS: Right knee surgical dressing SKIN: nonjaundiced Neuro: grossly intact. Objective Data Vital Signs Vital Signs: Vital Signs - 24 hr 12/08/20 13:36 12/08/20 13:37 12/08/20 14:00 Temperature 97.5 F L Pulse Rate 92 Respiratory Rate 18 Blood Pressure 70/41 L 82/42 L 82/42 L Pulse Oximetry 96 12/08/20 15:40 12/08/20 17:43 12/08/20 21:59 Temperature 98.6 F 98.0 F Pulse Rate 88 86 Respiratory Rate 16 16 Blood Pressure 90/48 L 90/48 L 110/62 Pulse Oximetry 97 94 12/09/20 01:00 12/09/20 06:26 Temperature 97.6 F 97.7 F Pulse Rate 84 88 Respiratory Rate 16 18 Blood Pressure 115/58 L 106/51 L Pulse Oximetry 96 95 Intake/Output Intake/Output: Intake & Output 12/06/20 12/07/20 12/08/20 12/09/20 23:59 23:59 23:59 23:59 Intake Total 465 017 9452 1250 Output Total 550 1050 1000 500 Balance -150 -250 23
--- NOTE | 2020-12-09 15:03 | PM.PNORT ---
Progress Note: A&P Additional Plan POD 3 WITH STABLE BP. STABLE PER MEDICINE SERVICES. OK TO DC HOME F/U IN 3 WEEKS. Subjective Subjective Date/Time Seen: 12/09/20 15:03 pod 3 doing well. bp stable. no calf pain. 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[employer] SIGN Objective Data Vital Signs Vital Signs: Vital Signs - 24 hr 12/08/20 15:40 12/08/20 17:43 12/08/20 21:59 Temperature 37.0 C 36.7 C Pulse Rate 88 86 Respiratory Rate 16 16 Blood Pressure 90/48 L 90/48 L 110/62 Pulse Oximetry 97 94 12/09/20 01:00 12/09/20 06:26 Temperature 36.4 C 36.5 C Pulse Rate 84 88 Respiratory Rate 16 18 Blood Pressure 115/58 L 106/51 L Pulse Oximetry 96 95 Intake/Output Intake/Output: Intake & Output 12/06/20 12/07/20 12/08/20 12/09/20 23:59 23:59 23:59 23:59 Intake Total 845 493 5898 1490 Output Total 550 1050 1000 500 Balance -150 -250 230 990 Meds/Results Medications: Active Medications Generic Name Dose Route Start Last Admin Trade Name Freq PRN Reason Stop Dose Admin Acetaminophen 1,000 mg 12/06/20 17:33 12/09/20 06:27 Acetaminophen 500 Mg Tablet PO 1,000 mg Q6H PRN Administration Pain Rated 1-3 Amlodipine Besylate 5 mg 12/06/20 21:00 12/08/20 20:28 Amlodipine Besylate 5 Mg Tablet PO 5 mg HS CASANDRA Administration Ascorbic Acid 1,000 mg 12/07/20 09:00 12/09/20 08:53 Ascorbic Acid 500 Mg Tablet PO 1,000 mg DAILY CASANDRA Administration Aspirin 650 mg 12/07/20 09:00 12/09/20 08:53 Aspirin 325 Mg Enteric Tablet PO 650 mg DAILY CASANDRA Administration Benzonatate 200 mg 12/06/20 18:08 Benzonatate 100 Mg Capsule PO TID PRN cough Chlorthalidone 25 mg 12/07/20 09:00 12/09/20 08:54 Chlorthalidone 25 Mg Tablet PO Not Given QAM CASANDRA Diazepam 5 mg 12/06/20 17:33 Diazepam (*Crx) 5 Mg Tablet PO Q8H PRN Spasms Diphenhydramine HCl 50 mg 12/06/20 21:00 12/08/20 21:40 Diphenhydramine Hcl Cap 25 Mg Capsule PO 50 mg HS CASANDRA Administration Docusate Sodium 100 mg 12/06/20 17:33 12/09/20 09:01 Docusate Sodium 100 Mg Capsule PO 100 mg BID CASANDRA Administration Famotidine 20 mg 12/06/20 21:00 12/09/20 08:54 Famotidine 20 Mg Tablet PO 20 mg Q12HR CASANDRA Administration Sodium Chloride 1,000 mls @ 75 mls/hr 12/08/20 17:20 12/09/20 06:25 Normal Saline Iv IV CONT 75 mls/hr .[id number] CASANDRA Administration Lisinopril 10 mg 12/06/20 21:00 12/08/20 20:29 Lisinopril 10 Mg Tablet PO 10 mg HS CASANDRA Administration Naloxone HCl 0.1 mg 12/06/20 17:33 Naloxone Hcl 0.4 Mg/Ml Vial IV PUSH Q2M PRN Opiate Reversal Ondansetron HCl 4 mg 12/06/20 17:33 Ondansetron Inj 4 Mg/2 Ml Vial IV PUSH Q4H PRN Nausea And Vomiting Oxycodone HCl 7.5 mg 12/06/20 17:33 12/06/20 19:00 Oxycodone Hcl (*Crx) 2.5 Mg Tab Ir PO 7.5 mg Q4H PRN Administration Pain Rated 7-10 Oxycodone/Acetaminophen 1 tablet 12/06/20 17:33 12/09/20 13:26 Oxycodone/Acetaminophen (*Crx) 5-325 Mg Tablet PO 1 tablet Q4H PRN Administration Pain Rated 4-6 Radiology Results: ITS Impressions Knee X-Ray 12/06/20 16:00 IMPRESSION: 1. Recent right total knee arthroplasty.
--- NOTE | 2020-12-09 15:11 | PM.DS ---
DS: Admitting Diagnosis Admitting Diagnosis Admitting Diagnosis: RIGHT KNEE DJD DS: Discharge Diagnosis Discharge Diagnosis (1) Aftercare following knee joint replacement surgery: Qualifiers: Laterality: right Qualified Code(s): Z47.1 - Aftercare following joint replacement surgery; Z96.651 - Presence of right artificial knee joint Code(s): Z47.1 - Aftercare following joint replacement surgery; Z96.659 - Presence of unspecified artificial knee joint Status: Acute DS: Summary Hospital Course Reason for hospitalization: R TKA Hospital Course: PATIENT WAS ADMITTED FOR R TKA. SHE DID WELL DURING SURGERY AND POSTOP. SHE HAD HAD SOME BP LABILITY AND THIS WAS CORRECTED BY INTERNAL MEDICINE. SHE OTHER KELLY REMAINED STABLE. HER PAIN WAS WELL CONTROLLED, HER WOUND WAS FREE OF SIGNS OF INFECTION. HER PAIN WAS WELL CONTROLLED. SHE WAS TAKING GOOD PO INTAKE. SHE WOULD BE D/C TO HOME WITH HOME HEALTH. SHE WOULD HAVE ASA FOR DVT PROPHYLAXIS X 4 WEEKS. SHE WOULD F/U IN 3 WEEKS Time spent discussing smoking cessation with patient: 3 to 10 minutes Status at Discharge Cognitive/behavioral status at discharge: STABLE Functional status at discharge: uses cane/walker Overall status at discharge: patient is progressing back to baseline Time Spent with Patient Time attestation: Total time spent providing and/or coordinating discharge services: Time spent: Less than 30 minutes DS: Data Procedures/Treatments: R tka Discharge Plan Discharge Attending physician on discharge: Tyrone Padilla Consulting providers: Abraham Giles Discharging Clinician: Tyrone Padilla Anticipated Discharge Date/Time: 12/09/20 15:18 Patient Disposition: Home Health Service Activity: may shower, no driving and follow weight bearing status Diet: as tolerated Wound Care Instructions: follow printed instructions and keep dressing dry Discharge Instructions: Per Care Coordination: [facility] has been arranged to follow at discharge. [facility] will follow for RN and PT/OT eval and treat. [facility] will contact you prior to their first visit. [facility] can be reached at [phone]. Patient Instructions: Antibiotic Form Stand Alone Forms: General Discharge Information Follow-up/Referrals: Amira Valdez MD [Primary Care Provider] - (FOLLOW UP WITH DR. STAHL ON 12/13/20 AT 2:15 PM.) Discharge Medications: New hydrocodone-acetaminophen 7.5-325 mg tablet 1 tablet PO Q8H PRN (Reason: pain) Qty: 60 RF: 0 Continued cholecalciferol (vitamin D3) 75 mcg (3,000 unit) tablet 75 mcg PO DAILY RF: 0 benzonatate 200 mg capsule 200 mg PO TID PRN (Reason: cough) Qty: 30 RF: 0 fenofibrate micronized 134 mg capsule 134 mg PO QPM Qty: 90 RF: 1 ascorbic acid (vitamin C) [Vitamin C] 1,000 mg Tablet 1 g PO DAILY RF: 0 Unisom (diphenhydramine) 50 mg/30 mL Liquid 50 mg PO HS RF: 0 chlorthalidone 25 mg tablet 25 mg PO QAM RF: 0 amlodipine-benazepril 5-10 mg capsule 1 cap PO HS RF: 0 fluticasone propionate 50 mcg/actuation spray,suspension See Rx Instructions .ROUTE .COMPLEX PRN (Reason: Congestion) RF: 0 chlorhexidine gluconate [Hibiclens] 4 % liquid 1 applic topical ONCE Qty: 237 RF: 0 tramadol 50 mg tablet 50 mg PO Q8H PRN (Reason: pain) Qty: 30 RF: 0 Date of admission: 12/07/20 15:47 Primary Care Provider: Amira Valdez Admitting Provider: Tyrone Padilla Attending physician on admission: Tyrone Padilla Condition: Stable Quality VTE Prophylaxis VTE prophylaxis: pharmacologic ordered
== END 2020-12-09 16:28 | disposition home health service (06) ==
LOC: ANHSURGERY 16:01 → ANH2MED 16:01
PROVIDERS: Admitting Provider Orthopaedic Surgery; PCP Family Medicine; Visit Provider Orthopaedic Surgery
PROC: (CPT 27447; principal; 2020-12-06 12:00)
DX: M17.11 Unilateral primary osteoarthritis, right knee (principal); G89.18 Other acute postprocedural pain; I10 Essential (primary) hypertension; E78.2 Mixed hyperlipidemia; E55.9 Vitamin D deficiency, unspecified; E66.9 Obesity, unspecified; Z68.33 Body mass index [BMI] 33.0-33.9, adult
CPT/HCPCS: 27447; 64447; 36415; 73560; 80048; 80307; 81001; 82040; 83036; 85025; 85610; 85730; 86850; 86900; 86901; 87081; 93005; 97110; 97116; 97161; 97165; 97530; 97535; A9270; C1713; C1776; C9803; G0378; J0171; J0330; J0690; J1100; J2270; J2405; J2704; J2795; J3010; J7030; J7050; J7120; U0003; U0005

== ENCOUNTER 2021-01-30 10:00 | Outpatient (RCR) | payer MEDICARE, SELFPAY ==
--- NOTE | 2020-12-30 10:48 | PTOPEVAL ---
Thank you for referring Bianca Solis to [facility].? The patient is scheduled to be seen for therapy? ____x/week for ___ weeks. Please review, sign, date and return this plan of care ANALISA. I agree with and certify that the following plan of care is medically necessary. Referring Physician Date Admitting Provider: Attending Provider: Tyrone Padilla MD Referring Provider: *PT Outpatient Evaluation Start: 12/30/20 09:37 Freq: Status: Active Protocol: Document 12/30/20 09:37 MLV (Rec: 12/30/20 10:24 MLV [id number]) Therapy Assessment Status Assessment Status Assessment Status Evaluation Outpatient Past Medical History Past Medical History Source of Past Medical History Recalled from Previous Visit, Confirmed with Patient/Family Neurological History Hx Neurological Disorders No Significant History Cardiovascular History Hx Hypercholesterolemia Yes Hx Hypertension Yes Hx Other Cardiac Disorders Yes: PT DENIES CARDIAC SYMPTOMS, WALKS [id number] STEPS DAILY Respiratory History Hx Respiratory Disorders No Significant History Gastrointestinal History Hx Cholecystectomy Yes Hx Hernia Yes: UMBILICAL HERNIA REPAIR X2 Hx Polyps Yes: REMOVED WITH COLONOSCOPY Genitourinary History Hx Genitourinary Disorders No Significant History Musculoskeletal History Hx Arthritis Yes: KNEES Hx Crutches or Walker Use Yes: AMBULATES WITH WALKER Query Text:If Yes, Enter Crutches, Walker, or Both in the Comment Hx Fractures Yes: FOOT-NO SURGERY Hematological History Hx Hematological Disorders No Significant History Endocrine History Hx Endocrine Disorders No Significant History HEENT History Hx Cataracts Yes: BILATERALLY REMOVED Hx Sinus Problems Yes: SEASONAL ALLERGIES Hx Dental Problems Yes: UPPER FULL DENTURE Integumentary History Hx Skin Disorders No Significant History Reproductive History Hx Post Menopausal Yes Hx Tubal Ligation Yes Psychosocial History Hx Anxiety Yes: NO MEDS Pain History Has Past Pain Affected Your Daily Life Yes: RT KNEE Anesthesia History Hx Anesthesia Reactions No Significant History Evaluation Information Problem Diagnosis right knee DJD Onset right TKA 12/06/20 Cause wear/tear Additional Evaluation Detail The patient lives home with her spouse and I w/o a device and had no limits to normal activities. The patient wal
--- NOTE | 2020-12-30 10:50 | PTOPEVAL ---
PHYSICAL THERAPY EVALUATION Thank you for referring Bianca Solis to [facility].? Jacque was evaluated for the dx of right TKA. The patient is scheduled to be seen for therapy? 2 x/week for 4 weeks. Please review, sign, date and return this plan of care ANALISA. I agree with and certify that the following plan of care is medically necessary. Referring Physician Date Attending Provider: Tyrone Padilla MD *PT Outpatient Evaluation Start: 12/30/20 09:37 Freq: Status: Active Protocol: Document 12/30/20 09:37 MLV (Rec: 12/30/20 10:24 MLV [id number]) Therapy Assessment Status Assessment Status Assessment Status Evaluation Evaluation Information Problem Diagnosis right knee DJD Onset right TKA 12/06/20 Cause wear/tear Additional Evaluation Detail The patient lives home with her spouse and I w/o a device and had no limits to normal activities. The patient walked for exercise prior to knee getting really bad. The patient is eager to get better and get back to her life. Diagnostic Tests X-Rays For This Problem Yes: DJD zafar. knees Pain Assessment Timing of Pain Assessment Timing of Pain Assessment Assessment Pain Scale Pain Scale Used Numeric (1 - 10) Self Report Pain Assessment Right Knee(s) Reported Pain Level 1 Pain Description Tingling Pain Frequency Intermittent Other Pain Description lower leg tingling with activity Pain Aggravating Factors Prolonged Position,Walking Pain Behaviors Limping Pain Score Pain Score 1: Self Report Interventions Used Interventions Used By Clinicians Education,Exercise,Ice Pain Relief Interventions Used By Exercise,Ice,Inactivity/Rest, Patient Position Change Lower Extremity Range of Motion General Lower Extremity Range of Motion Reason Not Measured WFL/Left,WFL/Right Limitations Pain,Soft Tissue Restriction Gross Lower Extremity Range of Motion left knee 0-134' active Comments right knee 0-93', passive flexion right ankle DF 0' with gastroc tightness Lower Extremity Muscle Strength Testing General Lower Extremity Strength Reason Not Measured WFL/Left,WFL/Right Gross Lower Extremity Strength left hip flexion 3+ to 4-/5 right hip flexion 4-/5 Posture Posture Supine Position Posture Evaluation View Anterior Knee Posture
--- NOTE | 2021-01-30 10:51 | PTOPEVAL ---
PHYSICAL THERAPY DISCHARGE Thank you for referring Bianca Solis to [facility].? The patient completed 9 visits for the dx of right TKA. The patient has met her goals and PT DC'ed. Please review, sign, date and return this plan of care ANALISA. I agree with and certify the following plan of care. Referring Physician Date Attending Provider: Tyrone Padilla MD Referring Provider: *PT Outpatient Discharge Start: 12/30/20 09:37 Freq: Status: Active Protocol: Document 01/30/21 10:11 MLV (Rec: 01/30/21 10:45 MLV [email or web address]) Therapy Assessment Status Assessment Status Assessment Status Discharge Evaluation Information Problem Diagnosis right knee DJD Onset right TKA 12/06/20 Additional Evaluation Detail The patient feels she has improved with walking, has less pain, and feels her knee is looser. Patient notes improved ease with daily self care and normal house chores . Pain Assessment Timing of Pain Assessment Timing of Pain Assessment Assessment Pain Scale Pain Scale Used Numeric (1 - 10) Self Report Pain Assessment Right Knee(s) Reported Pain Level 1 Pain Frequency Acute Other Pain Description at night 2-3 and takes ibuprofen for relief Pain Behaviors None Pain Score Pain Score 1: Self Report Interventions Used Interventions Used By Clinicians Education,Exercise Pain Relief Interventions Used By Exercise,Ice,Medication, Patient Position Change Lower Extremity Range of Motion General Lower Extremity Range of Motion Reason Not Measured WFL/Left,WFL/Right Gross Lower Extremity Range of Motion left knee 0-134' active Comments right knee 0-125', passive flexion, active motion 0-119' right ankle DF 3' with gastroc tightness improved Lower Extremity Muscle Strength Testing General Lower Extremity Strength Reason Not Measured WFL/Left,WFL/Right Gross Lower Extremity Strength zafar hip flexion 4/5 Palpation Assessment Palpation Palpation swelling decreased at right knee to foot. Uses tubigrip but only as needed and not needed too often. Pt still using ice also prn. Balance Assessment Time Up Go (TUG) Timed Up and Go Test (TUG) (Seconds) 13 Assistive Devices None 5 Time Sit to Stand Time in Seconds 12 5 Time Sit to Stand Comments no UE support needed Query
== END 2021-01-31 14:24 | disposition home or self-care (01) ==
LOC: ANHPT 10:00
PROVIDERS: PCP Family Medicine; Visit Provider Orthopaedic Surgery
DX: Z47.1 Aftercare following joint replacement surgery (principal); Z96.651 Presence of right artificial knee joint
CPT/HCPCS: 97110; 97116; 97140; 97162

== ENCOUNTER → 2021-06-22 09:36 | Outpatient (CLI) | payer MEDICARE, SELFPAY ==
[2021-06-22 20:55] LABS: SARS-CoV-2 RNA PCR Positive
== END ==
PROVIDERS: PCP Family Medicine; Visit Provider Nurse Practitioner Gerontology
DX: U07.1 COVID-19 (principal)
CPT/HCPCS: C9803; U0003; U0005

== ENCOUNTER 2022-12-11 09:31 | Outpatient (CLI) | payer MEDICARE, SELFPAY ==
--- NOTE | ~2022-12-11 | DEXA_ITS ---
Bone Density Report Name: BALJIT GALICIA Age: 82 Sex: Female Ethnicity: White Date of : 1940 Indication: postmenopausal; screening for osteoporosis; height loss; Referring Provider: LINDSEY VILLALTA Study: Bone densitometry was performed. Exam Date: December 11, 2022 Accession number: [id number] Bone Density: Region BMD T-score Z-score Classification AP Spine(L1-L4) 0.989 -0.5 2.2 Normal Femoral Neck (Left) 0.473 -3.4 -1.1 Osteoporosis Total Hip (Left) 0.734 -1.7 0.4 Osteopenia Femoral Neck (Right) 0.535 -2.8 -0.5 Osteoporosis Total Hip (Right) 0.675 -2.2 -0.1 Osteopenia Total Hip Mean 0.704 -2.0 0.2 Osteopenia World Health Organization criteria for BMD impression classify patients as: Normal (T-score at or above -1.0), Osteopenia (T-score between -1.0 and -2.5), or Osteoporosis (T-score at or below -2.5). 10-year Fracture Risk: FRAX not reported because: Some T-score for Spine Total or Hip Total or Femoral Neck at or below -2.5 Clinical Information Provided by Patient: Has used the following medications: Vitamin D Patient maximum height was 62 Menopause Age: 53 Onset of menses at age 15 Number of children 3 Impression: The patient has osteoporosis, based on the Left Femoral Neck T-score. Discussion: INCREASED RISK OF FRACTURE. BONE DENSITY IS UNDESIRABLY LOW AT ONE OR MORE SKELETAL SITES, CONSISTENT WITH POSTMENOPAUSAL OSTEOPOROSIS. This patient's lowest T-score meets the World Health Organization's (WHO) criteria for osteoporosis at one or more sites (T-score -2.5 or below). In untreated patients, the risk of osteoporotic fracture increases approximately two-fold for each 1.0 SD decrease in T-score. Low bone density is not the only risk factor for fracture; also consider factors such as patient's age, frailty or poor health, risk of falling, risk of injury, previous osteoporotic fracture, family history of osteoporosis, cigarette smoking, low body weight, etc. Not everyone with low bone mineral density has osteoporosis; osteomalacia and other metabolic bone disorders should also be considered. Patients who have osteoporosis should be evaluated for specific diseases and conditions (secondary causes) that may cause or contribute to bone loss. The [place] Association of Clinical Endocrinologists (AACE) and National Osteoporosis Foundation (NOF) recommend pharmacologic intervention for all postmenopausal women whose T-score is in this range. The patient should follow a healthful lifestyle (good nutrition with adequate calcium and vitamin D, and appropriate weight-bearing exercise). Follow-Up: Consider a repeat BMD and Vertebral Fracture Assessment (VFA) exam in 2 years or sooner if medically necessary, to reassess this patient's status. Reported by: ANDRÉS on 12/11/2022 10:09:00 A
== END 2022-12-11 09:32 | disposition home or self-care (01) ==
PROVIDERS: PCP Family Medicine; Visit Provider Physician Assistant
DX: Z78.0 Asymptomatic menopausal state (principal); M81.0 Age-related osteoporosis without current pathological fracture; M85.852 Other specified disorders of bone density and structure, left thigh; M85.851 Other specified disorders of bone density and structure, right thigh
CPT/HCPCS: 77080

== ENCOUNTER 2023-07-17 08:23 | Outpatient (CLI) | payer MEDICARE, SELFPAY ==
[2023-07-17 09:10] LABS: Anion Gap 7 mmol/L (8-16); Blood Urea Nitrogen 21 mg/dL (7-17); Calcium 10.4 mg/dL (8.4-10.2); Carbon Dioxide 27 mmol/L (22-30); Chloride 104 mmol/L (98-107); Estimated Glomerular Filt Rate 60; Glucose 104 mg/dL (65-110); Potassium 3.9 mmol/L (3.4-5.0); Sodium 138 mmol/L (137-145)
[2023-07-17 09:36] LABS: Basophils Percent Auto 0.5 % (0.2-1.2); Eosinophils Absolute Auto 0.2 K/mm3 (0-0.3); Eosinophils Percent Auto 2.3 % (0-4.4); Hematocrit 44.3 % (37.0-47.0); Hemoglobin 13.7 g/dL (12.0-15.0); Immature Granulocyte Absolute 0.02 K/mm3 (0.00-0.031); Immature Granulocyte Percent A 0.3 % (0-0.5); Lymphocytes Absolute Auto 2.08 K/mm3 (0.9-3.2); Lymphocytes Percent Auto 31.8 % (18.3-44.2); Mean Corpuscular HGB Conc 30.9 g/dl (32-36); Mean Corpuscular Volume 90.6 fl (80-100); Mean Platelet Volume 11.4 fl (7.4-10.4); Monocytes Absolute Auto 0.5 K/mm3 (0.1-0.6); Monocytes Percent Auto 7.5 % (2.6-8.5); Neutrophils Absolute Auto 3.8 K/mm3 (1.3-6.7); Neutrophils Percent Auto 57.6 % (45.5-73.1); Platelet Count Result 234 k/mm3 (150-375); Red Blood Count 4.89 M/mm3 (4.2-5.4); Red Cell Distribution Width 13.8 % (11.5-14.5); White Blood Count 6.5 K/mm3 (4.5-10.0)
[2023-07-17 10:35] LABS: Appearance Urine Clear (Clear); Bacteria Urine None Seen /hpf; Bilirubin Urine Negative (Negative); Blood Urine Negative (Negative); Color Urine Yellow (Yellow); Glucose Urine UA Negative (Negative); Ketones Urine Negative (Negative); Leukocyte Esterase Ur 1+ LEU/UL (Negative); Mucus Urine Present /lpf; Nitrate Urine Negative (Negative); Non Pathogenic Casts 0-2; Protein Urine Negative (Negative); RBC Urine 0-2 /hpf (0-2); Squamous Epithelial Cell Urine None seen /hpf (Few); Urobilinogen Urine 0.2 mg/dL (<2.0); WBC Urine 0-5 /hpf
[2023-07-17 10:37] LABS: Add Urine Microscopic? YES
== END 2023-07-17 08:24 | disposition home or self-care (01) ==
PROVIDERS: PCP Family Medicine; Visit Provider Orthopaedic Surgery
DX: I10 Essential (primary) hypertension (principal); M17.10 Unilateral primary osteoarthritis, unspecified knee; D64.9 Anemia, unspecified; M17.12 Unilateral primary osteoarthritis, left knee; R53.83 Other fatigue; E78.2 Mixed hyperlipidemia
CPT/HCPCS: 36415; 80048; 81001; 85025

== ENCOUNTER 2023-08-20 11:37 | Outpatient (CLI) | payer MEDICARE, SELFPAY ==
[2023-08-20 13:31] LABS: Urine Cotinine NEGATIVE
[2023-08-20 13:36] LABS: Prothrombin Time 13.6 Seconds (11.1-14.7)
[2023-08-20 13:37] LABS: Partial Thromboplastin Time 30.4 SECONDS (22.3-36.8)
[2023-08-20 14:44] LABS: MRSA (PCR) NOT DETECTED (NOT DETECTE)
== END 2023-08-20 11:38 | disposition home or self-care (01) ==
LOC: ANHSURGERY 11:45
PROVIDERS: PCP Family Medicine; Visit Provider Orthopaedic Surgery
DX: M17.12 Unilateral primary osteoarthritis, left knee (principal); Z01.818 Encounter for other preprocedural examination
CPT/HCPCS: 80307; 85610; 85730; 86850; 86900; 86901; 87641

== ENCOUNTER 2023-09-03 00:11 | Day surgery (SDC) | payer MEDICARE, SELFPAY ==
--- NOTE | 2023-08-20 11:59 | PC.NURSE ---
Report to the Outpatient Waiting Room, entrance under the green pavilion located off [facility], at time _9:00AM on date __09/03/23 . Planned Procedure Time: __11:00AM . Time changes happen often and if your time is changed the preop area will call you the afternoon before. - You and your visitor will be asked to self-screen and do not enter if you have any COVID symptoms. - A mask is optional within the hospital at this time. Patients may have clear liquids (water, carbonated beverages, clear teas, apple juice) until 3 hours prior to surgery with a maximum of 20 ounces. - No food from midnight until time of surgery. Take the following medications with a SIP of water the morning of surgery: ____NONE DO NOT STOP ANY OF YOUR OTHER PRESCRIPTION MEDICATIONS PRIOR TO SURGERY ?EXCEPT THE FOLLOWING Medications to discontinue per physician HOLD ALL VITAMINS/SUPPLEMENTS 3 DAYS PRE-OP Date to take last dose____08/30/23 Please no make-up, nail armenian, hairspray, perfume, deodorant, or body powder the day of surgery. No jewelry (including any body piercings) or valuables the day of surgery, leave them at home. Please take a shower or bath the night before, or the morning of, surgery with an antibacterial soap. Wear comfortable, loose fitting clothing. - Jewelry must be removed prior to entering the operating room. Rings and piercings that are not removed may be cut off. - The hospital will not accept responsibility for valuables. - Please leave all valuables, including medications, at home the day of surgery. If you are going home after surgery, a licensed student truck driver must drive you home. - NO public transportation without another adult if you receive anesthesia. - We recommend that an adult stay with you for 24 hours following discharge. - We also recommend that you do not drive, make important decision, drink alcoholic beverages, or take any drugs that were not prescribed by your health care provider for at least 24 hours after your discharge time. Follow any additional instructions given to you from your surgeon. HIBICLENS SHOWER PER DR REVELES. If you or anyone in your household have experienced Covid symptoms in the past week, please notify your surgeon or the nurse liaison at the phone number below for possible testing. Telephone instructions given to ____PATIENT and asked if any additional questions and then verbalized understanding. Patient advised to call surgeon office or pre surgery nurse liaison [phone] if any additional questions.
[2023-08-20 12:03] VITALS: BMI 35.8
[2023-08-20 12:12] VITALS: BP 131/63; PULSE 71; RESP 16; TEMP 37.1; O2SAT 98
[2023-09-03] VITALS (12 sets, daily range): BP systolic 104–147; BP diastolic 56–88; PULSE 81–98; RESP 14–17; TEMP 36.1–36.7; O2SAT 91–99
--- NOTE | ~2023-09-03 | XR_ITS ---
EXAMINATION: [id number] DATE: 09/03/2023 13:41 INDICATION: Postoperative evaluation following left total knee arthroplasty. TECHNIQUE: Anteroposterior and lateral views of the left knee were obtained. COMPARISON: None. FINDINGS: Left total knee arthroplasty with patellar resurfacing appears well seated and in near anatomic align ment. No fractures identified. Anterior skin nadira and expected postoperative subcutaneous and int ra-articular gas. IMPRESSION: 1. Left total knee arthroplasty, negative for postoperative purposes. Reviewed, dictated and finalized at location A.
--- NOTE | 2023-09-03 07:17 | WPDHPUPDATE1 ---
History and Physical Update Update Date/Time: 09/03/23 07:17 History and Physical has been reviewed, including an updated exam of the patient. There are NO changes in the patient's condition. Risks, benefits, and alternatives have been discussed and questions answered. Patient agrees to proceed with procedure.
[2023-09-03] MEDS: LACTATED RINGERS 1,000 ML 30 ML IV CONT ×3 (09:45→14:36)
--- NOTE | 2023-09-03 09:56 | WPDANESEPPF ---
Anes - Initial Pre Proc Eval Procedure: Operation Date: 09/03/23 11:00 Proposed Procedures p Left Total Knee Arthroplasty - Tyrone Padilla MD Date/Time: 09/03/23 09:56 Surgeon: Tyrone Padilla MD Pre Op Diagnosis: left knee djd Patient Data Age: 83 Gender: F Height: 1.47 m Weight: 77.8 kg Last Vital Signs Temp 37.1 C 08/20/23 12:12 Pulse 71 08/20/23 12:12 Resp 16 08/20/23 12:12 BP 131/63 08/20/23 12:12 Pulse Ox 98 08/20/23 12:12 O2 Del Method Room Air 08/20/23 12:12 Allergies Allergy/AdvReac Type Severity Reaction Status Date / Time No Known Allergies Allergy Verified 08/22/23 08:55 Home Medications Medication Instructions Recorded Confirmed Type cholecalciferol (vitamin D3) 75 75 mcg PO DAILY 12/30/19 08/22/23 History mcg (3,000 unit) tablet ascorbic acid (vitamin C) 1,000 mg 1 g PO DAILY 11/21/20 08/22/23 History tablet (Vitamin C) diphenhydramine HCl 50 mg/30 mL 50 mg PO HS 11/21/20 08/22/23 History oral liquid (Unisom (diphenhydramine)) nystatin 100,000 unit/gram topical 1 applic topical BID PRN rash #30 08/13/23 08/22/23 Rx powder grams amlodipine 5 mg-benazepril 10 mg 1 cap PO QAM 08/20/23 08/22/23 History capsule fenofibrate micronized 134 mg 1 mg PO QAM 08/20/23 08/22/23 History capsule chlorhexidine gluconate 4 % 1 applic topical ONCE #237 mL 08/22/23 08/22/23 Rx topical liquid (Hibiclens) Patient hx anesthesia problems: none Family hx anesthesia problems: none Results Review: All pre-operative results and documents have been reviewed as part of the pre-operative evaluation. 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 Essential (primary) hypertension Gallbladder & bile duct stone, acute cholecystitis and obstruction Hiatal hernia HTN (hypertension) Knee effusion, right Mixed hyperlipidemia MVP (mitral valve prolapse) Obesity (BMI 30.0-34.9) Obesity, unspecified Other obesity Right knee pain Vitamin D deficiency Surgical History Surgical History History of tubal ligation Status post hernia repair Family History Family History Mother Carcinoma of colon Father Family history of lung cancer Family history of heart disease in male family member before age 55 Patient's father is , Onset Age: 67 Grandparent Carcinoma of colon Sibling Family history of malignant neoplasm of breast in first degree relative, Onset Age: 45 Patient's brother is , Onset Age: 73 Other Family history of liver disease Hypertension Social History Social History Social History: Smoking status: Never smoker Second hand tobacco smoke exposure: No Alcohol intake: never Substance use: never Substance use type: does not use Do You Feel Safe in your Home?: Yes Lack of Transportation: No Lack of Food: Never True Current Housing: I Have Housing Concerned About Future Housing: No Difficulty Paying Gas/Electric Bills: No Difficulty Paying for Meds: No Currently Unemployed: YES Education: Decline to Answer Difficulty w/ Childcare or Family Care: No Living arrangements: with family Additional living arrangements comments: BROTHER Occupation/Education: retired Gender identity (if verbalized by the patient): Female Sexual Orientation (if Verbalized by the Patient): Straight or Heterosexual Spiritual care concerns: No Anes - Eval Final PreProcedure Day of Procedure 09/03/23 09:56 Patient weight: obese Heart: r
[2023-09-03] MEDS: ACETAMINOPHEN 500 MG TABLET 1000 MG PO ×2 (10:00→23:31)
[2023-09-03] MEDS: TRANEXAMIC ACID 1,000MG/ISO100 1,000 MG/100 ML BAG 200 MG IVPB (10:15)
[2023-09-03] MEDS: ceFAZolin 2 GM/D5W 50 ML 2 GM/50 ML BAG IVPB ×2 (11:22→17:53)
[2023-09-03] MEDS: SODIUM CHLORIDE 0.9% IV 37.7 ML, MORPHINE SULFATE INJ (*CRX) 2 MG, ROPivacaine HCL 1% 2... INFILTRATE (11:51)
[2023-09-03] MEDS: TRANEXAMIC ACID 1,000 MG/10 ML AMPUL 1000 MG IV PUSH (12:45)
--- NOTE | 2023-09-03 13:38 | W.PM.PROC2 ---
Procedure Note - Detailed Date of Procedure 09/03/23 Pre-op Diagnosis left knee djd Post-op Diagnosis Same Procedure Performed R TKA Surgeon Tyrone Padilla MD Anesthesia General Description of Procedure THE LEFT KNEE WAS PREPPED AND DRAPED IN THE STERILE FASHION. A MIDLINE SKIN INCISION WAS MADE. A MEDIAL PARAPATELLAR ARTHROTOMY WAS MADE. THE PATELLA WAS EVERTED. THERE WAS TRICOMPARTMENT DJD. THERE WAS MINIMAL PATELLA DJD. AN INTRAMEDULLARY BRIAN WAS PLACED IN THE FEMUR. A DISTAL FEMORAL CUT WAS MADE IN 5 DEGREES OF VALGUS REMOVING APPROXIMATELY 9 MM OF BONE FROM THE DISTAL FEMUR. THE FEMUR WAS SIZED TO 60. A 60 FEMORAL CUTTING BLOCK WAS PLACED IN 3 DEGREES OF EXTERNAL ROTATION AND IN ALIGNMENT WITH NORMA'S LINE AND THE TRANSEPICONDYLAR AXIS. ANTERIOR POSTERIOR AND CHAMFER CUTS WERE MADE. THE CUTS WERE EXCELLENT. NEXT AN INTRAMEDULLARY CUTTING GUIDE WAS PLACED IN THE TIBIA. A TRANS TIBIAL CUT WAS MADE ALONG THE LONG AXIS OF THE TIBIA. APPROXIMATELY 10 MM OF BONE WAS REMOVED FROM THE HIGH SIDE OF THE TIBIA. THE TIBIA WAS THEN PLANED TO A SMOOTH SURFACE. POSTERIOR FEMORAL OSTEOPHYTES WERE REMOVED FROM THE FEMORAL CONDYLES. A 67 TIBIAL TRIAL WAS PLACED IN ALIGNMENT WITH THE 1/3 MEDIAL ASPECT OF THE TIBIAL TUBERCLE. THEN A 60 FEMORAL TRIAL COMPONENT WAS PLACED. BOTH HAD EXCELLENT FITS. EVENTUALLY A 12 MM CR POLYETHYLENE TRIAL COMPONENT WAS PLACED. THE KNEE WAS TAKEN THROUGH A RANGE OF MOTION. THE KNEE CAME OUT TO FULL EXTENSION. THERE WAS NO ABNORMAL TILT TO THE PATELLA. THERE WAS GOOD A/P AND VARUS/VALGUS STABILITY. THERE WAS NO EXCESSIVE ROLL BACK WITH FLEXION. THE TRIAL COMPONENTS WERE REMOVED. THEN A 60 FEMORAL COMPONENT AND 67 TIBIAL COMPONENT WITH A 12 CR POLYETHYLENE COMPONENT WERE CEMENTED INTO PLACE. ONCE THE CEMENT WAS HARD THE KNEE WAS TAKEN THROUGH A ROM AGAIN AND FOUND TO BE STABLE WITH NO PATELLA TILT NO EXCESSIVE ROLL BACK WITH FLEXION AND GOOD STABILITY WITH COMPLETE AND FULL EXTENSION. THE KNEE WAS IRRIGATED WITH STERILE BETADINE AND WATER FOR ABOUT 3 MINUTES. THE BLEEDERS WERE CAUTERIZED. THE ARTHROTOMY WAS REPAIRED WITH NUMBER 1 VICRYL. THE SUB CUTANEOUS LAYER WITH 2-0 VICRYL AND THE SKIN WITH SOWMYA. THE WOUND WAS WASHED AND A STERILE DRESSING WAS APPLIED. PATIENT WAS EXTUBATED. Estimated Blood Loss 300 Pathology None sent Complications No immediate complications Condition Stable Disposition PACU
[2023-09-03] MEDS: ONDANSETRON INJ 4 MG/2 ML VIAL IV PUSH ×3 (13:48→23:31)
[2023-09-03] MEDS: diphenhydrAMINE HCl INJ 50 MG/ML VIAL 12.5 MG IV PUSH (14:29)
[2023-09-03] MEDS: SODIUM CHLORIDE 0.9% IV 1,000 ML 125 ML IV CONT (16:22)
[2023-09-03] MEDS: SENNA/DOCUSATE SODIUM TABLET 2 TAB PO (16:22)
[2023-09-03] MEDS: oxyCODONE/ACETAMINOPHEN (*CRX) 5-325 MG TABLET 1 TABLET PO ×2 (16:22→20:21)
[2023-09-03] MEDS: CELECOXIB 200 MG CAPSULE PO (16:22)
--- NOTE | 2023-09-03 16:52 | PC.NURSE ---
This patient, Bianca Solis, was admitted to Medical Room 346-01. Patient/family oriented to hospital policies and general routines including ID bracelet, bed and alarms, visiting hours, pain management, procedures, bathroom and other care routines, personal items, smoking policy, room service/diet, and visiting hours. Information on how to activate the Rapid Response Team has been discussed. Patient/Family are encouraged to report perceived risks to care and to ask questions if they do not understand what they are told or what they should do.
[2023-09-03] MEDS: PROPARACAINE HCL 0.5% 15 ML OPHTH SOLN 1 DROP EACH EYE (17:51)
[2023-09-03] MEDS: ASPIRIN 325 MG ENTERIC TABLET PO (20:21)
[2023-09-03] MEDS: diazePAM (*CRX) 5 MG TABLET PO (20:22)
[2023-09-03] MEDS: FAMOTIDINE 20 MG TABLET PO (20:23)
[2023-09-03] MEDS: DICLOFENAC SODIUM 0.1% OPHTH SOLN 2.5 ML BOTTLE 1 DROP EACH EYE (20:26)
[2023-09-04 00:22] VITALS: BP 124/68; PULSE 85; RESP 14; TEMP 36.9; O2SAT 95
[2023-09-04] MEDS: oxyCODONE/ACETAMINOPHEN (*CRX) 5-325 MG TABLET 2 TABLET PO (04:27)
[2023-09-04] MEDS: DICLOFENAC SODIUM 0.1% OPHTH SOLN 2.5 ML BOTTLE 1 DROP EACH EYE (04:28)
[2023-09-04] MEDS: ceFAZolin 2 GM/D5W 50 ML 2 GM/50 ML BAG IVPB ×2 (04:28→11:23)
[2023-09-04 04:35] VITALS: BP 116/47; PULSE 79; RESP 14; TEMP 37.2; O2SAT 96
[2023-09-04 06:31] LABS: Basophils Percent Auto 0.1 % (0.2-1.2); Hematocrit 33.7 % (37.0-47.0); Hemoglobin 10.8 g/dL (12.0-15.0); Immature Granulocyte Absolute 0.06 K/mm3 (0.00-0.031); Immature Granulocyte Percent A 0.5 % (0-0.5); Lymphocytes Absolute Auto 1.08 K/mm3 (0.9-3.2); Lymphocytes Percent Auto 8.7 % (18.3-44.2); Mean Corpuscular Hemoglobin 28.3 pg (26-34); Mean Corpuscular Volume 88.2 fl (80-100); Mean Platelet Volume 11.2 fl (7.4-10.4); Monocytes Percent Auto 7.6 % (2.6-8.5); Neutrophils Absolute Auto 10.4 K/mm3 (1.3-6.7); Neutrophils Percent Auto 83.1 % (45.5-73.1); Platelet Count Result 188 k/mm3 (150-375); Red Blood Count 3.82 M/mm3 (4.2-5.4); Red Cell Distribution Width 14.1 % (11.5-14.5); White Blood Count 12.5 K/mm3 (4.5-10.0)
[2023-09-04 06:46] LABS: Anion Gap 7 mmol/L (8-16); Blood Urea Nitrogen 15 mg/dL (7-17); Calcium 9.2 mg/dL (8.4-10.2); Carbon Dioxide 24 mmol/L (22-30); Chloride 107 mmol/L (98-107); Estimated Glomerular Filt Rate > 60; Glucose 113 mg/dL (65-110); Potassium 3.6 mmol/L (3.4-5.0); Sodium 138 mmol/L (137-145)
--- NOTE | 2023-09-04 07:26 | WPDANESPN ---
Anes - Prog Note Post-Op Date/Time: 09/04/23 07:26 Cardiovascular status: normal Respiratory status: normal Airway patency: baseline Mental status: baseline Post-Op hydration status: normal Vital Signs: Last Vital Signs Temp 37.2 C 09/04/23 04:35 Pulse 79 09/04/23 04:35 Resp 14 09/04/23 04:35 BP 116/47 L 09/04/23 04:35 Pulse Ox 96 09/04/23 04:35 O2 Del Method Nasal Cannula 09/03/23 15:10 O2 Flow Rate 2 09/03/23 15:10 Pain Score (VAS): 2 I/O: Intake & Output 09/03/23 09/03/23 09/04/23 15:59 23:59 07:59 Intake Total 950 50 300 Output Total 100 Balance 950 50 200 Laboratory Tests 09/04/23 06:17 09/04/23 06:17 09/04/23 06:17 WBC 12.5 H RBC 3.82 L Hgb 10.8 L Hct 33.7 L MCV 88.2 MCH 28.3 MCHC 32.0 RDW 14.1 Plt Count 188 MPV 11.2 H Immature Gran % (Auto) 0.5 Neut % (Auto) 83.1 H Lymph % (Auto) 8.7 L [place] % (Auto) 7.6 Eos % (Auto) 0.0 Baso % (Auto) 0.1 L Lymph # (Auto) 1.08 [place] # (Auto) 1.0 H Eos # (Auto) 0.0 Baso # (Auto) 0.0 Abs Immat Gran (auto) 0.06 H Absolute Neuts (auto) 10.4 H Absolute Nucleated RBC 0.000 Nucleated RBC % 0.0 Sodium 138 Potassium 3.6 Chloride 107 Carbon Dioxide 24 Anion Gap 7 L BUN 15 D Creatinine 0.80 Estim Creat Clear Calc Not Reportable Estimated GFR > 60 Glucose 113 H Calcium 9.2 Post-procedural complaints: none Patient Feedback: Patient satisfied with anesthetic care.
[2023-09-04 07:45] VITALS: PULSE 73; O2SAT 94
[2023-09-04] MEDS: amLODIPine BESYLATE 5 MG TABLET PO (08:35)
[2023-09-04] MEDS: CELECOXIB 200 MG CAPSULE PO (08:35)
[2023-09-04] MEDS: lisinopriL 10 MG TABLET PO (08:36)
[2023-09-04] MEDS: SENNA/DOCUSATE SODIUM TABLET 2 TAB PO (08:36)
[2023-09-04] MEDS: FAMOTIDINE 20 MG TABLET PO (08:36)
[2023-09-04] MEDS: ASPIRIN 325 MG ENTERIC TABLET PO (08:36)
[2023-09-04] MEDS: CHOLECALCIFEROL 1,000 UNITS TABLET 3000 UNITS PO (08:37)
[2023-09-04] MEDS: ASCORBIC ACID 500 MG TABLET 1000 MG PO (08:37)
[2023-09-04] MEDS: oxyCODONE/ACETAMINOPHEN (*CRX) 5-325 MG TABLET 1 TABLET PO ×2 (08:37→17:15)
[2023-09-04] MEDS: polyethylene glycoL 3350 17 GM POWD.PACK PO (08:37)
[2023-09-04 09:11] VITALS: BP 112/62; PULSE 80; RESP 16; TEMP 36.8; O2SAT 95
--- NOTE | 2023-09-04 12:56 | PM.PNORT ---
Progress Note: A&P Assessment and Plan (1) Left knee DJD: Qualifiers: Osteoarthritis type: primary Qualified Code(s): M17.12 - Unilateral primary osteoarthritis, left knee Code(s): M17.12 - Unilateral primary osteoarthritis, left knee Status: Acute Assessment and Plan: POD 1 DOING WELL. OK TO DC HOME AFTER PT. F/U IN 3 WEEKS. Subjective Subjective Date/Time Seen: 09/04/23 12:56 Interval history: POD1 DOING WELL. NO CALF PAIN. GOOD PROGRESS WITH PT 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TACT NEG HOMANS SIGN CALF SOFT NON TENDER Objective Data Vital Signs Vital Signs: Vital Signs - 24 hr 09/03/23 13:27 09/03/23 13:40 09/03/23 13:55 Temperature 36.3 C L Pulse Rate 98 92 92 Respiratory Rate 14 17 17 Blood Pressure 138/72 147/81 H 128/65 Pulse Oximetry 95 96 91 Oxygen Delivery Simple Face Mask Room Air Room Air Oxygen Flow Rate 6 09/03/23 14:10 09/03/23 14:25 09/03/23 14:40 Temperature Pulse Rate 90 87 84 Respiratory Rate 17 16 15 Blood Pressure 113/60 130/68 111/58 L Pulse Oximetry 91 91 92 Oxygen Delivery Nasal Cannula Nasal Cannula Nasal Cannula Oxygen Flow Rate 2 2 2 09/03/23 14:55 09/03/23 15:10 09/03/23 16:00 Temperature 36.1 C L Pulse Rate 81 94 81 Respiratory Rate 14 15 14 Blood Pressure 115/56 L 129/66 132/58 L Pulse Oximetry 94 93 99 Oxygen Delivery Nasal Cannula Nasal Cannula Oxygen Flow Rate 2 2 09/03/23 16:36 09/03/23 17:07 09/03/23 21:11 Temperature 36.2 C L 36.2 C L 36.7 C Pulse Rate 85 88 96 Respiratory Rate 15 15 14 Blood Pressure 104/88 126/82 117/61 Pulse Oximetry 97 95 93 Oxygen Delivery Oxygen Flow Rate 09/04/23 00:22 09/04/23 04:35 09/04/23 07:45 Temperature 36.9 C 37.2 C Pulse Rate 85 79 73 Respiratory Rate 14 14 Blood Pressure 124/68 116/47 L Pulse Oximetry 95 96 94 Oxygen Delivery Room Air Oxygen Flow Rate 09/04/23 08:21 09/04/23 09:11 09/04/23 08:37 Temperature 36.8 C Pulse Rate 80 Respiratory Rate 16 Blood Pressure 112/62 Pulse Oximetry 95 Oxygen Delivery Room Air Room Air Oxygen Flow Rate Intake/Output Intake/Output: Intake & Output 09/01/23 09/02/23 09/03/23 09/04/23 23:59 23:59 23:59 23:59 Intake Total 1000 590 Output Total 100 Balance 1000 490 Meds/Results Medications: Active Medications Generic Name Dose Route Start Last Admin Trade Name Freq PRN Reason Stop Dose Admin Acetaminophen 1,000 mg 09/03/23 15:26 09/03/23 23:31 Acetaminophen 500 Mg Tablet PO 1,000 mg Q6H PRN Administration Pain Rated 1-3 Amlodipine Besylate 5 mg 09/04/23 09:00 09/04/23 08:35 Amlodipine Besylate 5 Mg Tablet PO 10/04/23 08:59 5 mg QAM CASANDRA Administration Artificial Tears 1 drop 09/03/23 17:16 Artificial Tears Ophth Soln 15 Ml Bottle EACH EYE Q2H PRN Dry Eye(s) Ascorbic Acid 1,000 mg 09/04/23 09:00 09/04/23 08:37 Ascorbic Acid 500 Mg Tablet PO 1,000 mg DAILY CASANDRA Administration Aspirin 325 mg 09/03/23 21:00 09/04/23 08:36 Aspirin 325 Mg Enteric Tablet PO 325 mg Q12HR CASANDRA Administration Celecoxib 200 mg 09/03/23 17:00 09/04/23 08:35 Celecoxib 200 Mg Capsule PO 200 mg BIDWM CASANDRA Administration Diazepam 5 mg 09/03/23 15:26 09/03/23 20:22 Diazepam (*Crx) 5 Mg Tablet PO 5 mg Q8H PRN Administration Spasms Diclofenac Sodium 1 drop 09/03/23 22:00 09/04/23 04:28 Diclofenac Sodium 0.1% Ophth Soln 2.5 Ml Bottle EACH EYE 09/07/23 21:59 1 drop Q8HR CASNADRA Administration Diphenhydramine HCl 25 mg 09/03/23 15:26 Diphenhydramine Hcl Inj 50 Mg/Ml Vial IV PUSH Q6H PRN Itching Famotidine 20 mg 09/03/23 21:00 09/04/23 08:36 Famotidine 20 Mg Tablet PO 20 mg Q12HR CASANDRA Administration Lisinopril 10 mg 09/04/23 09:00 09/04/23 08:36 Lisinopril 10 Mg Tablet PO 10 mg QAM CASANDRA Administration Naloxone HCl 0.1 mg 09/03/23 15:26
--- NOTE | 2023-09-04 14:51 | PM.DS ---
DS: Admitting Diagnosis Discharge Date 09/04/23 Admitting Diagnosis LEFT TKA DS: Discharge Diagnosis Discharge Diagnosis (1) Abnormality of gait: Code(s): R26.9 - Unspecified abnormalities of gait and mobility Status: Acute (2) Left knee DJD: Qualifiers: Osteoarthritis type: primary Qualified Code(s): M17.12 - Unilateral primary osteoarthritis, left knee Code(s): M17.12 - Unilateral primary osteoarthritis, left knee Status: Acute DS: Summary Hospital Course Reason for hospitalization: LEFT TKA Hospital Course: PATIENT WAS ADMITTED S/P TOTAL KNEE ARTHROPLASTY FOR POSTOPERATIVE MEDICAL MANAGEMENT, PAIN CONTROL AND MOBILIZATION WITH PHYSICAL AND OCCUPATIONAL THERAPY. THE PATIENT PROGRESSED WELL WITH PT/OT. LABS AND VITALS REMAINED STABLE AND PAIN WELL CONTROLLED. THE PATIENT HAS BEEN CLEARED TO BE DISCHARGED HOME. FOLLOW UP APPOINTMENT SCHEDULED. DISCHARGE INSTRUCTIONS DISCUSSED AT LENGTH WITH THE PATIENT. MEDICATIONS REVIEWED. Time Spent with Patient Time attestation: Total time spent providing and/or coordinating discharge services: DS: Data Data Completed and Pending Labs on day of discharge: Labs from last 24 hours 09/04/23 06:17 WBC 12.5 H RBC 3.82 L Hgb 10.8 L Hct 33.7 L MCV 88.2 MCH 28.3 MCHC 32.0 RDW 14.1 Plt Count 188 MPV 11.2 H Immature Gran % (Auto) 0.5 Neut % (Auto) 83.1 H Lymph % (Auto) 8.7 L [place] % (Auto) 7.6 Eos % (Auto) 0.0 Baso % (Auto) 0.1 L Lymph # (Auto) 1.08 [place] # (Auto) 1.0 H Eos # (Auto) 0.0 Baso # (Auto) 0.0 Abs Immat Gran (auto) 0.06 H Absolute Neuts (auto) 10.4 H Absolute Nucleated RBC 0.000 Nucleated RBC % 0.0 Sodium 138 Potassium 3.6 Chloride 107 Carbon Dioxide 24 Anion Gap 7 L BUN 15 D Creatinine 0.80 Estim Creat Clear Calc Not Reportable Estimated GFR > 60 Glucose 113 H Calcium 9.2 Procedures/Treatments: LEFT TKA Discharge Plan Discharge Patient Disposition: Home Health Service Discharge Instructions: Care Coordination: Patient to have [facility] for PT/OT eval and treat, and group home. Their phone number is [phone] if you have any questions. They will contact you to schedule their first visit. ANTOINETTE PADILLA M.D. [facility] [address] [place] [address] POST OPERATIVE DISCHARGE INSTRUCTIONS FOLLOWING TOTAL KNEE REPLACEMENT SURGERY ? Your dressing will be changed prior to your discharge. You will be sent home with one additional dressing to be changed on post op day 7 by the home health RN. Your nadira will be removed on the 14th day after surgery and steri-strips will be placed. Please practice good hand hygiene and do not touch your incision in order to prevent infection. ? You may shower with your dressing but do not submerge in a bath tub. ? Do not drive or operate machinery until you are released by Dr. Padilla. ? Do not walk without a walker for any reason until you are released by Dr. Padilla. ? Continue to use your ice machine. Please use a towel or pillow case to protect your skin before applying your ice machine. ? Do NOT place a pillow under your knee. You may use a pillow from the calf down if needed. This will prevent a flexion contracture postoperatively. ? You may begin use of your CPM machine at home if you have been given one pre-operatively. DO NOT USE WHILE YOU ARE SLEEPING. ? Your first post op appointment was sent to you via mail preoperatively. If you have any questions or are unable to make your appointment, please contact our office for scheduling questions. ? Your medications have been sent to your pharmacy. You have been sent home with pain medication. We have also sent you with a stool softener as narcotics can cause constipation. Please keep this in mind during your postoperative recovery. If you are not experiencing regular bowel movements, please c
--- NOTE | 2023-09-04 16:49 | PM.DS ---
DS: Admitting Diagnosis Discharge Date 09/04/23 Admitting Diagnosis left knee djd DS: Discharge Diagnosis Discharge Diagnosis (1) Left knee DJD: Qualifiers: Osteoarthritis type: primary Qualified Code(s): M17.12 - Unilateral primary osteoarthritis, left knee Code(s): M17.12 - Unilateral primary osteoarthritis, left knee Status: Acute DS: Summary Hospital Course Reason for hospitalization: left tka Hospital Course: PATIENT WAS ADMITTED S/P TOTAL Knee ARTHROPLASTY FOR POSTOPERATIVE MEDICAL MANAGEMENT, PAIN CONTROL AND MOBILIZATION WITH PHYSICAL AND OCCUPATIONAL THERAPY. THE PATIENT PROGRESSED WELL WITH PT/OT. LABS AND VITALS REMAINED STABLE AND PAIN WELL CONTROLLED. THE PATIENT HAS BEEN CLEARED TO BE DISCHARGED Home FOLLOW UP APPOINTMENT SCHEDULED. DISCHARGE INSTRUCTIONS DISCUSSED AT LENGTH WITH THE PATIENT. MEDICATIONS REVIEWED. Status at Discharge Cognitive/behavioral status at discharge: stable Time Spent with Patient Time attestation: Total time spent providing and/or coordinating discharge services: DS: Data Data Completed and Pending Labs on day of discharge: Labs from last 24 hours 09/04/23 06:17 WBC 12.5 H RBC 3.82 L Hgb 10.8 L Hct 33.7 L MCV 88.2 MCH 28.3 MCHC 32.0 RDW 14.1 Plt Count 188 MPV 11.2 H Immature Gran % (Auto) 0.5 Neut % (Auto) 83.1 H Lymph % (Auto) 8.7 L Whitley % (Auto) 7.6 Eos % (Auto) 0.0 Baso % (Auto) 0.1 L Lymph # (Auto) 1.08 Whitley # (Auto) 1.0 H Eos # (Auto) 0.0 Baso # (Auto) 0.0 Abs Immat Gran (auto) 0.06 H Absolute Neuts (auto) 10.4 H Absolute Nucleated RBC 0.000 Nucleated RBC % 0.0 Sodium 138 Potassium 3.6 Chloride 107 Carbon Dioxide 24 Anion Gap 7 L BUN 15 D Creatinine 0.80 Estim Creat Clear Calc Not Reportable Estimated GFR > 60 Glucose 113 H Calcium 9.2 Discharge Plan Discharge Patient Disposition: Home Health Service Discharge Instructions: Care Coordination: Patient to have [facility] for PT/OT eval and treat, and chcf. Their phone number is [phone] if you have any questions. They will contact you to schedule their first visit. ANTOINETTE PADILLA M.D. [facility] [address] [place] [address] POST OPERATIVE DISCHARGE INSTRUCTIONS FOLLOWING TOTAL KNEE REPLACEMENT SURGERY ? Your dressing will be changed prior to your discharge. You will be sent home with one additional dressing to be changed on post op day 7 by the home health RN. Your nadira will be removed on the 14th day after surgery and steri-strips will be placed. Please practice good hand hygiene and do not touch your incision in order to prevent infection. ? You may shower with your dressing but do not submerge in a bath tub. ? Do not drive or operate machinery until you are released by Dr. Padilla. ? Do not walk without a walker for any reason until you are released by Dr. Padilla. ? Continue to use your ice machine. Please use a towel or pillow case to protect your skin before applying your ice machine. ? Do NOT place a pillow under your knee. You may use a pillow from the calf down if needed. This will prevent a flexion contracture postoperatively. ? You may begin use of your CPM machine at home if you have been given one pre-operatively. DO NOT USE WHILE YOU ARE SLEEPING. ? Your first post op appointment was sent to you via mail preoperatively. If you have any questions or are unable to make your appointment, please contact our office for scheduling questions. ? Your medications have been sent to your pharmacy. You have been sent home with pain medication. We have also sent you with a stool softener as narcotics can cause constipation. Please keep this in mind during your postoperative recovery. If you are not experiencing regular bowel movements, please contact our office for further instruction. ? Please contact our office with
== END 2023-09-04 17:40 | disposition home health service (06) ==
LOC: ANHSURGERY 08:51 → ANH3MED 15:56
PROVIDERS: PCP Family Medicine; Visit Provider Orthopaedic Surgery
PROC: (CPT 27447; principal; 2023-09-03 11:00)
DX: M17.12 Unilateral primary osteoarthritis, left knee (principal); I12.9 Hypertensive chronic kidney disease with stage 1 through stage 4 chronic kidney disease, or unspecified chronic kidney disease; N18.30 Chronic kidney disease, stage 3 unspecified; E78.2 Mixed hyperlipidemia; I34.1 Nonrheumatic mitral (valve) prolapse; E55.9 Vitamin D deficiency, unspecified; E66.9 Obesity, unspecified; Z68.35 Body mass index [BMI] 35.0-35.9, adult
CPT/HCPCS: 27447; 36415; 73560; 80048; 80307; 85025; 85610; 85730; 86850; 86900; 86901; 87641; 97110; 97116; 97161; 97165; 97530; A9270; C1713; C1776; J0171; J0360; J0690; J1100; J1170; J1200; J1885; J2270; J2405; J2704; J2795; J3010; J3370; J7030; J7120

== ENCOUNTER 2023-11-14 08:00 | Outpatient (RCR) | payer MEDICARE, SELFPAY ==
--- NOTE | 2023-10-09 11:08 | OPREHPOC ---
Outpatient Therapy Plan of Care This is a Multidisciplinary Plan of Care that may contain components documented by all disciplines (PT, OT, and ST.) PT Problem 1 PT Problem #1 Knowledge Deficit PT Goal 1 Goal *indep with HEP * correct use of lesser assistive device Target Visit 10 PT Problem 2 PT Problem #2 Pain PT Goal 1 Goal 1* pt report worst pain rating of 3/10 with increased activity level 2* self assessment LE Functional scale limitation of 16% Target Visit 10 PT Problem 3 PT Problem #3 Impaired Range of Motion PT Goal 1 Goal increase L knee ROM to improve gait pattern and ability on stairs: sitting active knee ROM: 1* extension 0' 2* flexion 110' Target Visit 10 PT Problem 4 PT Problem #4 Impaired Functional Mobil PT Goal 1 Goal 1* up/down 4 steps with one hand railing and alternating step pattern, indep 2* 2 minute walking test distance of 300' with assistive device 3* pt report she has been going out into the community Target Visit 10
--- NOTE | 2023-10-09 11:08 | PTOPEVAL1 ---
Assessment and note entered by Katie Muñoz, PT Evaluation Information Assessment Status Evaluation Diagnosis s/p L TKR Onset 09-03-23 surgery Subjective Information had [facility] therapy, is using her wheeled walker and doing all the exercises 15 reps; is doing well and did not have any concerns; Activity: prior to surgery- did not use assistive device, active and walking 10 - 15 minutes for fitness; indep with all in-home and self care tasks; lives with her brother; have one entry step into home; have a basement but she does not go down there--her brother lives down there. Reported Pain Level Pain Score Self Report Additional Pain Score Comments pain range in the past few days of -09/24: tight and sore over knee; knee is swollen. increase pain: bending knee and stretching it decrease pain: ice, over the counter meds is sleeping OK; is walking every hour and elevating leg when sitting. reinforced use of ice 10-15 min at time PRN for pain and swelling Assessment PT Clinical Summary Bianca is 5 weeks s/p L TKR. She has had her R knee replaced a few years ago and knows what to expect with therapy. She has completed [facility] and does not report any concerns with her mobility in her home with the wheeled walker. She is motivated and has been doing the exercises 15 reps. With the evaluation: 2 minute walking test distance of 200' with wheeled walker, 4 steps with bilateral hand rails indep; L knee active ROM in sitting: (-8') to 82'; there is edema over her knee; is performing 15 reps of the supine exercises. Skilled PT services are indicated for modalities PRN to decrease pain and edema; therapeutic exercises to increase knee ROM and strength, progression of gait training to lesser assistive device and progression of HEP. Plan of Care Interventions Electrical Stimulation,Gait Training,Hot Pack/Cold Pack,Intermittent Compression,Manual Therapy, Neuro Re-education,Patient/Caregiver Education, Therapeutic Activities,Therapeutic Exercise,Other Other Interventions
--- NOTE | 2023-10-31 09:19 | PCPTNOTE ---
Patient arrived for appt, sign of infection to incision, went to doctor's office directly, reschedule appt.
--- NOTE | 2023-11-14 08:51 | OPREHPOC ---
Outpatient Therapy Plan of Care This is a Multidisciplinary Plan of Care that may contain components documented by all disciplines (PT, OT, and ST.) PT Problem 1 PT Problem #1 Knowledge Deficit PT Goal 1 Goal *indep with HEP * correct use of lesser assistive device Target Visit 10 Progress Met PT Problem 2 PT Problem #2 Pain PT Goal 1 Goal 1* pt report worst pain rating of 3/10 with increased activity level 2* self assessment LE Functional scale limitation of 16% Target Visit 10 Progress Met PT Problem 3 PT Problem #3 Impaired Range of Motion PT Goal 1 Goal increase L knee ROM to improve gait pattern and ability on stairs: sitting active knee ROM: 1* extension 0' 2* flexion 110' Target Visit 10 Progress Met PT Problem 4 PT Problem #4 Impaired Functional Mobil PT Goal 1 Goal 1* up/down 4 steps with one hand railing and alternating step pattern, indep 2* 2 minute walking test distance of 300' with assistive device 3* pt report she has been going out into the community Target Visit 10 Progress Met
--- NOTE | 2023-11-14 08:51 | PTOPDC ---
Assessment and note entered by Serge Morales, PT Evaluation Information Assessment Status Discharge Diagnosis s/p L TKR Onset 09-03-23 surgery Subjective Information Reports that she feels she is doing very well over all. No concerns at this time. She has seen improvement in swelling which was one of her bigger issues following the surgery. Feels comfortable with HEP and would like to discharge from skilled therapy at this time. Reported Pain Level Pain Score 0: Self Report Pain Score 0: Self Report Assessment PT Clinical Summary Patient has met all therapy and personal goals at this time. No concerns moving forward. Patient is suitable for discharge to [facility] at this time. Plan of Care PT Services Indicated D/C to HEP
== END 2023-11-14 10:07 | disposition home or self-care (01) ==
LOC: ANHPT 08:00
PROVIDERS: PCP Family Medicine; Visit Provider Orthopaedic Surgery
DX: Z47.1 Aftercare following joint replacement surgery (principal); Z96.652 Presence of left artificial knee joint
CPT/HCPCS: 97016; 97110; 97112; 97116; 97140; 97161; 97530

== ENCOUNTER 2024-05-12 13:30 | Outpatient (CLI) | payer MEDICARE, SELFPAY ==
--- NOTE | ~2024-05-12 | MM_ITS ---
EXAMINATION: MM screening kassidy BI w alice HISTORY: Screening TECHNIQUE: Craniocaudal and mediolateral oblique 3-D tomosynthesis images were obtained and synthetic 2-D images were generated. CAD analysis was submitted and interpreted. COMPARISON: No prior mammogram is available for comparison at this institution. BREAST PARENCHYMAL COMPOSITION: Dense: The breasts are heterogeneously dense, which may obscure small masses FINDINGS: There is no evidence of suspicious mass, calcification, or architectural distortion to sugg est malignancy in either breast. There has been no suspicious interval change. IMPRESSION: 1. No mammographic evidence of malignancy. 2. Recommend routine screening mammography in one year. BI-RADS Category 1: Negative Reviewed, dictated and finalized at location B. NUE COORDINATOR
== END 2024-05-12 13:31 | disposition home or self-care (01) ==
PROVIDERS: PCP Family Medicine; Visit Provider Family Medicine
DX: Z12.31 Encounter for screening mammogram for malignant neoplasm of breast (principal)
CPT/HCPCS: 77063; 77067

== ENCOUNTER 2025-04-07 08:08 | Outpatient (CLI) | payer MEDICARE, SELFPAY ==
--- NOTE | ~2025-04-07 | DEXA_ITS ---
Bone Density Report Name: BALJIT GALICIA Age: 84 Sex: Female Ethnicity: White Date of : 1940 Indication: osteopenia; height loss; Referring Provider: NEIDA HENDERSON Study: Bone densitometry was performed. Exam Date: April 07, 2025 Accession number: [id number] Bone Density: Region BMD T-score Z-score Classification AP Spine(L1-L4) 0.958 -0.8 2.0 Normal Femoral Neck (Left) 0.441 -3.7 -1.3 Osteoporosis Total Hip (Left) 0.666 -2.3 -0.1 Osteopenia Femoral Neck (Right) 0.494 -3.2 -0.8 Osteoporosis Total Hip (Right) 0.716 -1.9 0.4 Osteopenia Total Hip Mean 0.691 -2.1 0.2 Osteopenia World Health Organization criteria for BMD impression classify patients as: Normal (T-score at or above -1.0), Osteopenia (T-score between -1.0 and -2.5), or Osteoporosis (T-score at or below -2.5). 10-year Fracture Risk: FRAX not reported because: Some T-score for Spine Total or Hip Total or Femoral Neck at or below -2.5 Previous Exams: Region Exam Age BMD T-score BMD Change BMD Change Date g/cm2 vs Baseline vs Previous AP Spine (L1-L4) 04/07/2025 84 0.958 -0.8 -0.031 (-3.1%) -0.031 (-3.1%) 12/11/2022 82 0.989 -0.5 Total Hip(Left) 04/07/2025 84 0.666 -2.3 -0.068 (-9.3%) -0.068 (-9.3%) 12/11/2022 82 0.734 -1.7 Total Hip(Right) 04/07/2025 84 0.716 -1.9 0.042 (6.2%)* 0.042 (6.2%)* 12/11/2022 82 0.675 -2.2 *Denotes significance at 95% confidence level, LSC for AP Spine = 0.022 g/cm2, LSC for Total Hip = 0.027 g/cm2 Clinical Information Provided by Patient: Has used the following medications: Vitamin D Patient maximum height was 62 Menopause Age: 53 Onset of menses at age 15 Number of children 3 Impression: The patient has osteoporosis, based on the Left Femoral Neck T-score. The BMD for the AP Spine (L1-L4) decreased, changing by -3.1% since the last DXA exam. The BMD for the Total Hip(Left) decreased, changing by -9.3% since the last DXA exam. Discussion: INCREASED RISK OF FRACTURE. BONE DENSITY IS UNDESIRABLY LOW AT ONE OR MORE SKELETAL SITES, CONSISTENT WITH POSTMENOPAUSAL OSTEOPOROSIS. This patient's lowest T-score meets the World Health Organization's (WHO) criteria for osteoporosis at one or more sites (T-score -2.5 or below). In untreated patients, the risk of osteoporotic fracture increases approximately two-fold for each 1.0 SD decrease in T-score. Low bone density is not the only risk factor for fracture; also consider factors such as patient's age, frailty or poor health, risk of falling, risk of injury, previous osteoporotic fracture, family history of osteoporosis, cigarette smoking, low body weight, etc. Not everyone with low bone mineral density has osteoporosis; osteomalacia and other metabolic bone disorders should also be considered. Patients who have osteoporosis should be evaluated for specific diseases and conditions (secondary causes) that may cause or contribute to bone loss. The [place] [employer]ocr[employer] (AACE) and National Osteoporosis Foundation (NOF) recommend pharmacologic intervention for all postmenopausal women whose T-score is in this range. The patient should follow a healthful lifestyle (good nutrition with adequate calcium and vitamin D, and appropriate weight-bearing exercise). Follow-Up: Consider a repeat BMD and Vertebral Fracture Assessment (VFA) exam in 2 years or sooner if medically necessary, to reassess this patient's status. Reported by: JL on 04/07/2025 9:02:00 AM. Reviewed, dictated and finalized at location A.
== END 2025-04-07 08:09 | disposition home or self-care (01) ==
LOC: ANHFOHIMG 08:08
PROVIDERS: PCP Family Medicine; Visit Provider Physician Assistant Medical
DX: M81.0 Age-related osteoporosis without current pathological fracture (principal); M85.852 Other specified disorders of bone density and structure, left thigh; M85.851 Other specified disorders of bone density and structure, right thigh
CPT/HCPCS: 77080